=== PATIENT | female | born 1930 | race Caucasian/White ===

== ENCOUNTER 2017-04-17 10:45 | Inpatient (IN) | payer MEDICARE ==
[~2017-04-17] VITALS: Ht 149.9 cm; Wt 57.8 kg
[~2017-04-17 10:45] MED LIST: CYAN10005 PO; NORT10CA PO; NORT50CA PO
[2017-04-17] MEDS ORDERED: IV NORMAL SALINE 500ML BAG 500 ML IV ONE ×2 (11:15→11:30)
[2017-04-17] MEDS ORDERED: fentaNYL PF VIAL 100 MCG/2 ML VIAL IV PRN ×2 (11:15→13:45)
[2017-04-17] MEDS ORDERED: ONDANSETRON PF 4 MG/2 ML VIAL. IV ONE (11:15)
--- NOTE | 2017-04-17 11:24 | RAD ---
EXAM: Chest one view. HISTORY: Shortness of breath. COMPARISON: 07/21/2016. FINDINGS: A frontal view of the chest is obtained. The inspiration is small with left basilar atelectasis/scarring. This is stable to mildly increased. There is a calcified granuloma on the right. There is no pneumothorax or pleural effusion. The heart is not enlarged. There are atherosclerotic calcifications of the aorta. Cholecystectomy clips are noted. IMPRESSION: 1. Small inspiration with left basilar atelectasis or scarring.
[2017-04-17] MEDS ORDERED: CONTRAST GIVEN MC PRN (11:30)
[2017-04-17] MEDS ORDERED: IOHEXOL 300 MG/ML 75 ML VIAL IV ONE (11:30)
--- NOTE | 2017-04-17 12:17 | EKG ---
[facility] [address] [place] [address] Test Date: 2017-04-17 Test Time: 10:50:58 Pat Name: SAIRA FRANCO Department: Room: Gender: F Director Community Organization: : 1930 Requested By: RASHARD RICE Order Number: [id number] Reading MD: Tiago De La Torre Measurements Intervals [place] Rate: 86 P: 72 MA: 168 QRS: -11 QRSD: 80 T: 38 QT: 386 QTc: 465 Interpretive Statements SINUS RHYTHM LEFTWARD AXIS OTHERWISE NORMAL ECG RI6.01 Compared to ECG 07/21/2016 22:42:13 Left-axis deviation now present T-wave abnormality no longer present Electronically Signed On 04-19-2017 10:53:15 CDT by Tiago De La Torre
[2017-04-17 12:28] LABS: BASO % 0 % (0-3); EOS % 0 % (0-3); HEMATOCRIT 38.7 % (36.0-47.0); HEMOGLOBIN 12.3 g/dL (12.0-15.5); LYMPH # 0.4 x10^3/uL (1.0-4.8); LYMPH % 2 % (24-48); MEAN CORPUSCULAR HEMOGLOBIN 30 pg (25-35); MEAN CORPUSCULAR HGB CONC 32 g/dL (31-37); MEAN CORPUSCULAR VOLUME 94 fL (79-100); MONO % 5 % (0-9); NEUT % 92 % (31-73); PLATELET COUNT 185 x10^3/uL (140-400); RED BLOOD COUNT 4.11 x10^6/uL (3.50-5.40); RED CELL DISTRIBUTION WIDTH 15.4 % (11.5-14.5); WHITE BLOOD COUNT 16.4 x10^3/uL (4.0-11.0)
[2017-04-17 12:39] LABS: CALCIUM 7.9 mg/dL (8.5-10.1); GFR 52.8; POTASSIUM 3.7 mmol/L (3.5-5.1)
[2017-04-17 12:45] LABS: ALBUMIN 2.9 g/dL (3.4-5.0); ALBUMIN/GLOBULIN RATIO 0.9 (1.0-1.7); TOTAL BILIRUBIN 0.3 mg/dL (0.2-1.0); TOTAL PROTEIN 6.3 g/dL (6.4-8.2)
[2017-04-17 13:16] LABS: % EOS 1 % (0-5); PLT ESTIMATE ADEQUATE (ADEQUATE)
--- NOTE | 2017-04-17 13:29 | RAD ---
EXAM: CT abdomen/pelvis with contrast. HISTORY: Abdominal pain, nausea, vomiting and diarrhea. TECHNIQUE: Computed tomography of the abdomen and pelvis was performed after the intravenous administration of 75 mL Omnipaque 300. COMPARISON: None. FINDINGS: Lung windows through the visualized portions of the bases reveal moderate basilar atelectasis. Bone windows reveal no suspicious lesions. There is grade 1 anterolisthesis at L3-4 and diffuse moderate to severe lumbar degenerative disc disease. A left hip hemiarthroplasty demonstrates moderate protrusio without a clear pathologic fracture. The gallbladder is surgically absent. The pancreas is atrophic. There is no biliary dilatation. Peripelvic cysts are noted in both kidneys. There is no hydronephrosis. Left renal atrophy is at least mild. The spleen, liver and adrenal glands are unremarkable. There is no obstruction. The rectum is distended with stool to 8-cm. The appendix is not inflamed. There are no pathologically enlarged lymph nodes. IMPRESSION: 1. Correlate for fecal impaction versus constipation. 2. No obstruction or acute intra-abdominal process. 3. 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 Orthopedic follow-up is recommended. *One or more of the following individualized dose reduction techniques were utilized for this examination: 1. Automated exposure control. 2. Adjustment of the mA and/or kV according to patient size. 3. Use of iterative reconstruction technique.
[2017-04-17] MEDS ORDERED: ONDANSETRON PF 4 MG/2 ML VIAL. IV PRN (13:45)
[2017-04-17 13:59] LABS: BILIRUBIN,URINE NEGATIVE (NEG); GLUCOSE,URINE NEGATIVE (NEG); NITRITE,URINE NEGATIVE (NEG); PROTEIN,URINE NEGATIVE (NEG-TRACE); UROBILINOGEN,URINE 0.2 mg/dL (0.2 mg/dL)
[2017-04-17 14:17] LABS: BACTERIA,URINE MODERATE /HPF (0-FEW); RBC,URINE RARE /HPF (0-2); SQUAMOUS EPITHELIAL CELL,UR MANY /LPF
[2017-04-17 14:40] VITALS: BP 115/54
--- NOTE | 2017-04-17 15:21 | PHYS DOC ---
Past Medical History Past Medical History: Dementia, UTI Past Surgical History: Other Additional Past Surgical Histo: UNKNOWN Alcohol Use: None Drug Use: None Adult General Chief Complaint Chief Complaint: NAUSEA/VOMITING/DIARRHA HPI HPI Patient is a 86 year old female who presents with vomiting & abdominal pain. The patient has dementia & gives limited history, therefore history obtained from jail staff. Reportedly she had several episodes of vomiting & complained of abdominal pain. They were concerned that she had brief depressed level of consciousness without syncope or fall. Denies fevers/chills, chest pain, hematemesis, hematochezia/melena, dysuria/hematuria. She has history of frequent UTI. PCP is Dr. Fitch. Review of Systems Review of Systems Constitutional: Denies fever or chills Eyes: Denies change in visual acuity HENT: Denies nasal congestion or sore throat Respiratory: Denies cough or shortness of breath Cardiovascular: Denies chest pain or edema GI: Reports abdominal pain, nausea, vomiting, denies bloody stools or diarrhea : Denies dysuria or hematuria Musculoskeletal: Denies back pain or joint pain Integument: Denies rash or skin lesions Neurologic: Denies headache, focal weakness or sensory changes Current Medications Current Medications Current Medications Medications (Trade) Dose Ordered Sig/Unique Start Time Stop Time Status Last Admin Dose Admin Fentanyl Citrate (Fentanyl 2ml Vial) 50 mcg PRN Q15MIN PRN 04/17/17 11:15 04/18/17 11:14 Info (Do NOT chart on this entry -- for MONITORING) 1 each PRN DAILY PRN 04/17/17 11:30 04/19/17 11:29 Iohexol (Omnipaque 300 Mg/ml) 75 ml 1X ONCE 04/17/17 11:30 04/17/17 11:31 DC 04/17/17 12:59 75 ML Ondansetron HCl (Zofran) 4 mg 1X ONCE 04/17/17 11:15 04/17/17 11:16 DC 04/17/17 11:09 4 MG Sodium Chloride 500 ml @ 1,000 mls/hr 1X ONCE 04/17/17 11:30 04/17/17 11:59 DC 04/17/17 11:30 1,000 MLS/HR Allergies Allergies Allergies Coded Allergies Type Severity Reaction Last Updated Verified melton Allergy Severe Hives 07/22/16 Yes Physical Exam Physical Exam Constitutional: frail, no acute distress, non-toxic appearance. HENT: Normocephalic, atraumatic, bilateral external ears normal, oropharynx moist, nose normal. Eyes: PERRLA, EOMI, conjunctiva normal, no discharge. Neck: supple, no stridor. Cardiovascular: RRR, no murmurs, no edema. Lungs & Thorax: LCTAB, no wheezing, no respiratory distress. Abdomen: normal bowel sounds, soft, moderate diffuse tenderness without rebound/ guarding, no masses or pulsatile masses, nondistended. Skin: Warm, dry, no erythema, no rash. Back: No CVA tenderness. Extremities: No tenderness, no edema. Neurologic: Alert and oriented to person & place, CN2-12 grossly intact, symmetric but globally weak strength & sensation to UE & LE, generally confused with most questions if not yes/no, no focal deficits noted. Psychologic: Affect normal, judgement normal, mood normal. Current Patient Data Vital Signs Vital Signs Date Time Temp Pulse Resp B/P (MAP) Pulse Ox O2 Delivery O2 Flow Rate FiO2 04/17/17 13:00 86 18 118/87 (97) 98 04/17/17 10:45 97.4 Nasal Cannula 2.0 97.4 Lab Values Laboratory Tests Test 04/17/17 12:10 04/17/17 13:00 White Blood Count 16.4 x10^3/uL (4.0-11.0) H Red Blood Count 4.11 x10^6/uL (3.50-5.40) Hemoglobin 12.3 g/dL (12.0-15.5) Hematocrit 38.7 % (36.0-47.0) Mean Corpuscular Volume 94 fL (79-100) Mean Corpuscular Hemoglobin 30 pg (25-35) Mean Corpuscular Hemoglobin Concent 32 g/dL (31-37) Red Cell Distribution Width 15.4 % (11.5-14.5) H Platelet Count 185 x10^3/uL (140-400) Neutrophils (%) (Auto) 92 % (31-73) H Lymphocytes (%) (Auto) 2 % (24-48) L Monocytes (%) (Auto) 5 % (0-9) Eosinophils (%) (Auto) 0 % (0-3) Basophils (%) (Auto) 0 % (0-3) Neutrophils # (Auto) 15.1 x10^3uL (1.8-7.7) H Lymphocytes # (Auto) 0.4 x10^3/uL (1.0-4.8) L Monocytes # (Auto) 0.8 x10^3/uL (0.0-1.1) Eosinophils # (Auto) 0.0 x10^3/uL (0.0-0.7) Basophils # (Auto) 0.0 x10^3/uL (0.0-0.2) Segmented Neutrophils % 82 % (35-66) H Band Neutrophils % 13 % (0-9) H Lymphocytes % 2 % (24-48) L Monocytes % 2 % (0-10) Eosinophils % 1 % (0-5) Platelet Estimate Adequate (ADEQUATE) Sodium Level 143 mmol/L (136-145) Potassium Level 3.7 mmol/L (3.5-5.1) Chloride Level 109 mmol/L (98-107) H Carbon Dioxide Level 25 mmol/L (21-32) Anion Gap 9 (6-14) Blood Urea Nitrogen 33 mg/dL (7-20) H Creatinine 1.0 mg/dL (0.6-1.0) Estimated GFR (Cockcroft-Gault) 52.8 BUN/Creatinine Ratio 33 (6-20) H Glucose Level 115 mg/dL (70-99) H Lactic Acid Level 2.0 mmol/L (0.4-2.0) Calcium Level 7.9 mg/dL (8.5-10.1) L Total Bilirubin 0.3 mg/dL (0.2-1.0) Aspartate Amino Transferase (AST) 16 U/L (15-37) Alanine Aminotransferase (ALT) 17 U/L (14-59) Alkaline Phosphatase 130 U/L (46-116) H Troponin I Quantitative < 0.017 ng/mL (0.000-0.055) Total Protein 6.3 g/dL (6.4-8.2) L Albumin 2.9 g/dL (3.4-5.0) L Albumin/Globulin Ratio 0.9 (1.0-1.7) L Lipase 84 U/L (73-393) Urine Collection Type Unknown Urine Color Yellow Urine Clarity Clear Urine pH 6.0 Urine Specific Chapman >=1.030 Urine Protein Negative mg/dL (NEG-TRACE) Urine Glucose (UA) Negative mg/dL (NEG) Urine Ketones (Stick) Negative mg/dL (NEG) Urine Blood Negative (NEG) Urine Nitrite Negative (NEG) Urine Bilirubin Negative (NEG) Urine Urobilinogen Dipstick 0.2 mg/dL (0.2 mg/dL) Urine Leukocyte Esterase Moderate (NEG) Urine RBC Rare /HPF (0-2) Urine WBC 11-20 /HPF (0-4) Urine Squamous Epithelial Cells Many /LPF Urine Renal Epithelial Cells Occ /LPF Urine Bacteria Moderate /HPF (0-FEW) Urine Mucus Slight /LPF Laboratory Tests 04/17/17 12:10 Laboratory Tests 04/17/17 12:10 EKG EKG Interpreted by me: Normal sinus rhythm rate 86, no acute ST or T wave changes, normal intervals, some artifact [] Radiology/Procedures Radiology/Procedures PROCEDURE: CHEST AP ONLY EXAM: Chest one view. HISTORY: Shortness of breath. COMPARISON: 07/21/2016. FINDINGS: A frontal view of the chest is obtained. The inspiration is small with left basilar atelectasis/scarring. This is stable to mildly increased. There is a calcified granuloma on the right. There is no pneumothorax or pleural effusion. The heart is not enlarged. There are atherosclerotic calcifications of the aorta. Cholecystectomy clips are noted. IMPRESSION: 1. Small inspiration with left basilar atelectasis or scarring. DICTATED and SIGNED BY: YIMI LARA MD DATE: 04/17/17 1121 PROCEDURE: CT ABD PELV W/ IV CONTRST ONLY EXAM: CT abdomen/pelvis with contrast. HISTORY: Abdominal pain, nausea, vomiting and diarrhea. TECHNIQUE: Computed tomography of the abdomen and pelvis was performed after the intravenous administration of 75 mL Omnipaque 300. COMPARISON: None. FINDINGS: Lung windows through the visualized portions of the bases reveal moderate basilar atelectasis. Bone windows reveal no suspicious lesions. There is grade 1 anterolisthesis at L3-4 and diffuse moderate to severe lumbar degenerative disc disease. A left hip hemiarthroplasty demonstrates moderate protrusio without a clear pathologic fracture. The gallbladder is surgically absent. The pancreas is atrophic. There is no biliary dilatation. Peripelvic cysts are noted in both kidneys. There is no hydronephrosis. Left renal atrophy is at least mild. The spleen, liver and adrenal glands are unremarkable. There is no obstruction. The rectum is distended with stool to 8-cm. The appendix is not inflamed. There are no pathologically enlarged lymph nodes. IMPRESSION: 1. Correlate for fecal impaction versus constipation. 2. No obstruction or acute intra-abdominal process. 3. 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 Orthopedic follow-up is recommended. *One or more of the following individualized dose reduction techniques were utilized for this examination: 1. Automated exposure control. 2. Adjustment of the mA and/or kV according to patient size. 3. Use of iterative reconstruction technique. DICTATED and SIGNED BY: YIMI LARA MD DATE: 04/17/17 1311 [] Course & Med Decision Making Course & Med Decision Making Pertinent Labs and Imaging studies reviewed. (See chart for details) The patient presents with vomiting & abdominal pain. Hypotensive upon arrival, improving with IV fluid administration. She had leukocytosis but otherwise no findings for SIRS/sepsis. CT unremarkable for acute abnormality other than constipation/impaction. She had UTI. Urine culture sent, gave rocephin in ED. Recommend admission for ongoing management of blood pressure, she agrees with plan of care. Discussed with Dr. Fitch who agrees to admit to inpatient status. She is being admitted in stable condition. [] Dragon Disclaimer Dragon Disclaimer This electronic medical record was generated, in whole or in part, using a voice recognition dictation system. Departure Departure Impression: Primary Impression: Abdominal pain Additional Impressions: Urinary tract infection Transient hypotension Dehydration Disposition: ADMITTED INPATIENT Admitting Physician: Syed Fitch Condition: STABLE Problem Qualifiers RASHARD RICE MD Apr 17, 2017 15:20
[2017-04-17] MEDS: IV NORMAL SALINE 1000ML BAG 1,000 ML IV SCH ×2 (15:37→23:50)
[2017-04-17 19:00] VITALS: BP 112/72
--- NOTE | 2017-04-17 21:28 | ACF ---
Admission Forms Criteria ABDOMINAL PAIN Clinical Indications for Admission to Inpatient Care (Place 'X' for any and all applicable criteria): Admission is indicated for ANY ONE of the following(1)(2)(3)(4)(5): [X]I. Inpatient admission required rather than observation care (Also use Abdominal Pain: Observation Care, as appropriate) because of ANY ONE of the following: [X]a) Severe pain requiring acute inpatient management [ ]b) Identification of etiology/finding that requires inpatient care (eg, aortic dissection, free air) [ ]c) Absent bowel sounds with complete ileus(6) [ ]d) Suspected toxic megacolon [ ]e) Severe electrolyte abnormalities requiring inpatient care [ ]f) High fever or infection requiring inpatient admission as indicated by ANY ONE of following(7)(8): [ ] i) Appropriate outpatient or observational care antimicrobial treatment unavailable, not effective, or not feasible [ ] ii) Documented bacteremia [ ] iii) Temperature > 104.9 degrees F (oral) [ ] iv) T >103.1 F (oral) or < 96.8 F(rectal) that does not respond to all emergency treatment measures [ ]g) Signs of intestinal obstruction [B] [ ]h) Hemodynamic instability [ ]i) IV fluid to replace significant ongoing losses (greater than 3 L/m2 per day) (12)(13) [ ]j) Percutaneous or open drainage (eg, abscess, biliary tract ) procedures [ ]k) Parenteral nutrition regimen that must be implemented on inpatient basis [ ]l) Other condition,treatment or monitoring requiring inpatient admission. [ ]II. Peritoneal signs present [ ]III. Surgery needed that cannot be performed on an ambulatory basis. [ ]IV. Evaluation requires patient to not eat or drink for extended period ( eg, more than 24 hours). [ ]V. Contraindications and/or Inappropriate clinical situations for Observational Care in patients with abdominal pain, when ANY ONE of the following is required: [ ]a) Thorough evaluation is required to prevent catastrophic events due to delays in diagnosing (e.g.Mesenteric ischemia) 1,3 [ ]b) Patient with severe pathology or with chronic symptoms unlikely to improve in the ED stay (3) [ ]. General contraindications and/or Inappropriate clinical situations for Observational Care in patients with abdominal pain, when ANY ONE of the following is required: [ ]a) Prediction of prolongation of LOS based on ANY ONE of the following may be considered as a contraindication for observational care 2, 3, 4, 5, 6, 7, 8, 9, 10, 11 [ ]i) Age > 65 yrs. [ ]ii) Patient arriving by ambulance [ ]iii) Patient with high acuity [ ]iv) Patient requiring vital sign monitoring [ ]v) Patient on IV medication [ ]b) Systolic blood pressures 180mmHg 3,12 [ ]c) Patient with altered mental status including delirium and other alteration of consciousness, (3) [ ]d) Patient whose discharge disposition will be to a snf home or rehabilitation home should not be managed in Emergency Department Observation Unit. CMS rule requires 3 days hospital stay before such placement.3,13 [ ]e) Patient with failure to thrive due to broad array of etiologies 3,16,17 [ ]f) Inability to ambulate 3,14 Extended stay beyond goal length of stay may be needed for(2)(3): [ ]a) Persistent abdominal pain with suspected intra-abdominal process [ ]b) Diagnosed condition requiring continued stay (e.g., pancreatitis, complicated diverticulitis) [ ]c) Surgery (e.g., colectomy) The original [email or web address] content created by [employer] has been revised. The portions of the content which have been revised are identified through the use of italic text or in bold, and [email or web address] has neither reviewed nor approved the modified material.All other unmodified content is copyright [employer]. Please see references footnoted in the original [email or web address] edition 2016 Admission Criteria Met?: Yes ADRI DOMINIQUE Apr 17, 2017 21:27
[2017-04-17 23:00] VITALS: BP 138/66
[2017-04-18 03:00] VITALS: BP 117/78
[2017-04-18 05:14] LABS: BASO % 0 % (0-3); EOS % 1 % (0-3); HEMATOCRIT 30.1 % (36.0-47.0); HEMOGLOBIN 10.1 g/dL (12.0-15.5); LYMPH # 0.7 x10^3/uL (1.0-4.8); LYMPH % 11 % (24-48); MEAN CORPUSCULAR HEMOGLOBIN 30 pg (25-35); MEAN CORPUSCULAR HGB CONC 34 g/dL (31-37); MEAN CORPUSCULAR VOLUME 91 fL (79-100); MONO % 6 % (0-9); NEUT % 82 % (31-73); PLATELET COUNT 157 x10^3/uL (140-400); RED BLOOD COUNT 3.33 x10^6/uL (3.50-5.40); RED CELL DISTRIBUTION WIDTH 14.9 % (11.5-14.5); WHITE BLOOD COUNT 6.5 x10^3/uL (4.0-11.0)
[2017-04-18 05:30] LABS: CALCIUM 6.8 mg/dL (8.5-10.1); CREATININE 0.9 mg/dL (0.6-1.0); GFR 59.7; POTASSIUM 3.7 mmol/L (3.5-5.1)
[2017-04-18 07:00] VITALS: BP 123/59
[2017-04-18] MEDS: IV NORMAL SALINE 1000ML BAG 1,000 ML IV SCH (10:12)
[2017-04-18 11:00] VITALS: BP 122/73
--- NOTE | 2017-04-18 11:19 | PDOC ---
Provider Note Provider Note Pt seen.H&P dictated. #[id number] LUIS LIVINGSTON MD Apr 18, 2017 11:19
--- NOTE | 2017-04-18 12:08 | HP ---
ADMIT DATE: PATIENT'S LOCATION: 408. REASON FOR ADMISSION TO THE HOSPITAL: Nausea, vomiting, diarrhea, abdominal pain, dehydration and elevated WBC. HISTORY OF PRESENT ILLNESS: The patient is an 86-year-old female patient from senior living. She has a history of dementia. She was having vomiting, abdominal pain and a brief episode of consciousness with near syncopal episode and the patient was admitted to the hospital. Urine shows UTI. CT of the abdomen shows some stool in the colon. White count elevated to 16,000. PAST MEDICAL HISTORY: History of dementia and recurrent UTIs. PAST SURGICAL HISTORY: Hip surgery. ALLERGIES: TO GOMEZ. MEDICATIONS AT HOME: Elavil 25 mg daily and B complex daily. PERSONAL HISTORY: No history of smoking, alcohol or drug abuse. SOCIAL HISTORY: Lives in senior living for 2-3 years. REVIEW OF SYSTEMS: The patient says she is feeling better, no nausea or vomiting today. No chest pain, no shortness of breath, no abdominal pain. PHYSICAL EXAMINATION: GENERAL: The patient is pleasant, not in any distress. VITAL SIGNS: Temperature 100.8, pulse 90, respirations 18, blood pressure was low at admission 69/44. HEENT: Head is atraumatic. Pupils equal. Oral cavity, no teeth. NECK: Supple. Thyroid not enlarged. JVD not elevated. CHEST: Symmetrical. CARDIOVASCULAR: S1, S2. LUNGS: Clear. ABDOMEN: Soft. No mass palpable. EXTERNAL GENITALIA: No Pleitez. RECTAL: Deferred. EXTREMITIES: No calf tenderness. Pulses 1+. NEUROLOGIC: The patient is moving all extremities. No focal deficits noted. LABORATORY DATA: Shows a white count of 16, came down to 6.5, hemoglobin 12, platelets 185. Electrolytes show sodium 143, potassium 3.7, chloride 109, bicarbonate 25, BUN 33, cr 1.2. Lactic acid was 2. LFTs were normal. Urine shows moderate leukocyte esterase, 11-20 wbc. She had an abdomen and pelvis CT scan shows some stool in the distal colon. No obstruction. Left hip hemiarthroplasty on the CT scan. FINAL IMPRESSION: 1. Hypotension. 2. Possible urinary tract infection. 3. Dementia. 4. History of gallbladder as well as left hip surgery. PLAN: At this time, admit to hospital, hydrate with IV fluids. Blood pressure improved. Urine cultures, blood cultures. Started on IV Rocephin and see how the patient's condition improves. LUIS LIVINGSTON MD DR: SYED/daxa JOB#: [id number] / [id number] [place]
[2017-04-18] MEDS: CYANOCOBALAMIN (VITAMIN B-12) 1,000 MCG TABLET. PO SCH (12:30)
[2017-04-18] MEDS: ENOXAPARIN 40 MG/0.4 ML SYRINGE. SQ SCH (12:31)
[2017-04-18 15:00] VITALS: BP 157/82
[2017-04-18 19:00] VITALS: BP 128/76
[2017-04-18] MEDS: NORTRIPTYLINE 25 MG CAPSULE PO SCH ×2 (20:54→21:00)
[2017-04-18 23:00] VITALS: BP 149/80
[2017-04-19 04:38] LABS: BASO % 0 % (0-3); EOS % 3 % (0-3); HEMATOCRIT 32.2 % (36.0-47.0); HEMOGLOBIN 10.6 g/dL (12.0-15.5); LYMPH # 0.9 x10^3/uL (1.0-4.8); LYMPH % 16 % (24-48); MEAN CORPUSCULAR HEMOGLOBIN 30 pg (25-35); MEAN CORPUSCULAR HGB CONC 33 g/dL (31-37); MEAN CORPUSCULAR VOLUME 92 fL (79-100); MONO % 9 % (0-9); NEUT % 73 % (31-73); PLATELET COUNT 151 x10^3/uL (140-400); RED BLOOD COUNT 3.51 x10^6/uL (3.50-5.40); RED CELL DISTRIBUTION WIDTH 14.7 % (11.5-14.5); WHITE BLOOD COUNT 5.7 x10^3/uL (4.0-11.0)
[2017-04-19 07:00] VITALS: BP 135/50
[2017-04-19] MEDS: CYANOCOBALAMIN (VITAMIN B-12) 1,000 MCG TABLET. PO SCH (08:42)
--- NOTE | 2017-04-19 09:47 | PDOC ---
PROGRESS NOTES Subjective Subjective feeling good ,back to base line Objective Objective Vital Signs Date Time Temp Pulse Resp B/P (MAP) Pulse Ox O2 Delivery O2 Flow Rate FiO2 04/19/17 07:00 98.1 81 20 135/50 (78) 99 Room Air 98.1 04/18/17 20:00 3.0 Intake and Output 04/19/17 07:00 Intake Total 115 ml Balance 115 ml Intake Oral 65 ml IV Total 50 ml # Voids 5 Physical Exam Abdomen: Normal bowel sounds, Soft Heart: Regular rate, Normal S1 Extremities: No clubbing General: Alert HEENT: Atraumatic Lungs: Clear to auscultation MUSCULOSKELETAL: No deformity Neck: Supple Neuro: Normal speech Psych/Mental Status: Mental status NL Skin: No breakdown Diagnosis Problem List Problems Medical Problems: (1) Abdominal pain Status: Acute (2) Dehydration Status: Acute (3) Transient hypotension Status: Acute (4) Urinary tract infection Status: Acute Assessment Assessment Problems Medical Problems: (1) Abdominal pain Status: Acute (2) Dehydration Status: Acute (3) Transient hypotension Status: Acute (4) Urinary tract infection Status: Acute FINAL IMPRESSION: 1. Hypotension. 2. Possible urinary tract infection. 3. Dementia. 4. History of gallbladder as well as left hip surgery. PLAN: hypotension corrected. urine 50,000 gram neg. wbc normal , d/c back to NH on oral keflex for 5 days. h/o recurrent uti.will treat as one spoke with daughter. At this time, admit to hospital, hydrate with IV fluids. Blood pressure improved. Urine cultures, blood cultures. Started on IV Rocephin and see how the patient's condition improves. Problems: Plan Plan of Care Problems Medical Problems: (1) Abdominal pain Status: Acute (2) Dehydration Status: Acute (3) Transient hypotension Status: Acute (4) Urinary tract infection Status: Acute Comment Review of Relevant I have reviewed the following items leticia (where applicable) has been applied. Labs Laboratory Tests Test 04/18/17 16:00 04/19/17 03:30 Lactic Acid Level 0.8 mmol/L (0.4-2.0) White Blood Count 5.7 x10^3/uL (4.0-11.0) Red Blood Count 3.51 x10^6/uL (3.50-5.40) Hemoglobin 10.6 g/dL (12.0-15.5) Hematocrit 32.2 % (36.0-47.0) Mean Corpuscular Volume 92 fL (79-100) Mean Corpuscular Hemoglobin 30 pg (25-35) Mean Corpuscular Hemoglobin Concent 33 g/dL (31-37) Red Cell Distribution Width 14.7 % (11.5-14.5) Platelet Count 151 x10^3/uL (140-400) Neutrophils (%) (Auto) 73 % (31-73) Lymphocytes (%) (Auto) 16 % (24-48) Monocytes (%) (Auto) 9 % (0-9) Eosinophils (%) (Auto) 3 % (0-3) Basophils (%) (Auto) 0 % (0-3) Neutrophils # (Auto) 4.1 x10^3uL (1.8-7.7) Lymphocytes # (Auto) 0.9 x10^3/uL (1.0-4.8) Monocytes # (Auto) 0.5 x10^3/uL (0.0-1.1) Eosinophils # (Auto) 0.2 x10^3/uL (0.0-0.7) Basophils # (Auto) 0.0 x10^3/uL (0.0-0.2) Microbiology 04/17/17 Urine Culture - Preliminary, Resulted 04/17/17 Urine Culture Result 1 (TJ) - Preliminary, Resulted Medications Current Medications Ceftriaxone Sodium 1 gm/ Sodium Chloride 50 ml @ 100 mls/hr Q24H IV Last administered on 04/18/17 12:31; Start 04/18/17 at 12:00 Cyanocobalamin (Vitamin B-12) 1,000 mcg DAILY PO Last administered on 08:42; Start 04/18/17 at 12:00 Enoxaparin Sodium (Lovenox 40mg Syringe) 40 mg Q24H SQ Last administered on 12:31; Start 04/18/17 at 12:00 Nortriptyline HCl (Pamelor) 50 mg QHS PO ; Start 04/18/17 at 21:00 Vitals/I & O Vital Sign - Last 24 Hours 04/18/17 04/18/17 04/18/17 04/18/17 11:00 15:00 19:00 20:00 Temp 98.9 98.1 98.3 98.9 98.1 98.3 Pulse 70 79 76 Resp 20 20 18 B/P (MAP) 122/73 (89) 157/82 (107) 128/76 (93) Pulse Ox 99 99 93 O2 Delivery Room Air Nasal Cannula Room Air Nasal Cannula O2 Flow Rate 3.0 3.0 04/18/17 04/19/17 23:00 07:00 Temp 98.1 98.1 98.1 98.1 Pulse 82 81 Resp 18 20 B/P (MAP) 149/80 (103) 135/50 (78) Pulse Ox 96 99 O2 Delivery Room Air Room Air Intake and Output 04/18/17 04/18/17 04/19/17 15:00 23:00 07:00 Intake Total 50 ml 65 ml Balance 50 ml 65 ml LUIS LIVINGSTON MD Apr 19, 2017 09:47
--- NOTE | 2017-04-19 09:51 | PDOC ---
Provider Note Provider Note Discharge summary Dictated. #[id number] LUIS LIVINGSTON MD Apr 19, 2017 09:51
[2017-04-19 11:00] VITALS: BP 150/92
[2017-04-19] MEDS: ENOXAPARIN 40 MG/0.4 ML SYRINGE. SQ SCH (12:00)
--- NOTE | 2017-04-19 21:27 | DS ---
DATE OF DISCHARGE: 04/19/2017 PATIENT LOCATION: [facility] REASON FOR ADMISSION TO THE HOSPITAL: Hypertension, nausea, vomiting, and UTI. CONSULTATIONS: None. PROCEDURES DONE: CT of abdomen and pelvis. COMPLICATIONS NOTED: None. HOSPITAL COURSE: The patient is an 86-year-old female with history of dementia at snf. The patient had an episode of confusion also hypertension and near syncopal episode, was brought to the hospital, white count elevated to 16,000. Urine shows nitrites positive. Urine culture shows 50,000 gram-negative. Repeat white count in the next day came back normal at 6.5 and other electrolytes were unremarkable and the patient was on clear liquid, advanced as tolerated, was given IV Rocephin, condition improved. Her baseline is back to her normal and the hypertension was corrected and she was discharged. The patient has a history of recurrent UTIs, given 50,000 gram-negative, we decided to treat for 7 days with Keflex total of 7 days of antibiotics, 5 more days with Keflex. FINAL DIAGNOSES: 1. Acute UTI. 2. Recurrent UTI. 3. Hypotension, probably related to UTI. 4. Stool in the distal colon and recommend stool softeners. 5. Dementia. 6. History of previous prosthesis in the left hip. DISPOSITION: Back to the snf, see discharge medications. The patient is a DNR, spoke with family. LUIS LIVINGSTON MD DR: SYED/daxa JOB#: [id number] / [id number] [facility]
== END 2017-04-19 14:45 | disposition home or self-care (01) | DRG 690 ==
LOC: ER 10:45 → 5 SOUTH 13:24 → 4 NORTH 14:23
PROVIDERS: ADMIT Internal Medicine; ATTEND Internal Medicine
DX: N39.0 Urinary tract infection, site not specified (principal); E44.1 Mild protein-calorie malnutrition; I10 Essential (primary) hypertension; F03.90 Unspecified dementia, unspecified severity, without behavioral disturbance, psychotic disturbance, mood disturbance, and anxiety; I95.9 Hypotension, unspecified; Z66 Do not resuscitate; Z96.642 Presence of left artificial hip joint; R55 Syncope and collapse; E86.0 Dehydration; Z87.440 Personal history of urinary (tract) infections; Z91.09 Other allergy status, other than to drugs and biological substances
CPT/HCPCS: 36415; 71010; 74177; 80048; 80053; 81001; 83605; 83690; 84484; 85007; 85027; 87040; 87086; 87186; 87641; 93005; 96361; 96374; J0696; J1650; J2405; J7030; J7040; Q9967; 99285-25

== ENCOUNTER 2022-02-06 10:16 | Inpatient (IN) | payer MEDICARE ==
[~2022-02-06] VITALS: Ht 152.4 cm; Wt 38.2 kg
[~2022-02-06 10:16] MED LIST changes: +CYAN-25 PO; -CYAN10005 PO
[2022-02-06] MEDS ORDERED: IV NORMAL SALINE 1000ML BAG 1,000 ML IV ONE (10:30)
[2022-02-06 10:34] LABS: BASE EXCESS ABG -2 mmol/L (-3-3); HCO3 ABG 17 mmol/L (21-28); PO2 ABG 199 mmHg (65-108); SAT O2 ABG 99 % (92-99)
[2022-02-06 10:36] LABS: FIO2 ABG 100% 15LNRB; PCO2 ABG 18 mmHg (35-46)
--- NOTE | 2022-02-06 10:44 | PHYS DOC ---
Past Medical History Past Medical History: Dementia, UTI Past Surgical History: Other Additional Past Surgical Histo: UNKNOWN Smoking Status: Never Smoker Alcohol Use: None Drug Use: None Adult General Chief Complaint Chief Complaint: HYPOTENSION HPI HPI Patient is a 89 year old female presenting to the emergency department for evaluation of altered mental status hypotension tachycardia and hypoxia. Report from intermediate is that she was at her baseline all night and then woke up like this. Patient appears to only be on 1 medication which is nortriptyline. She appears to be very ill as she is tachypneic tachycardic and hypoxic at room air but with her nonrebreather on her oxygen saturation is at 100%. She does not have a measurable blood pressure either and she has weak central pulses and nonpalpable peripheral pulses. Patient had a fever per EMS but here she is afebrile. On her intermediate paperwork and states that she is a DNR. I called the daughter, Claire who is her DURABLE POWER OF FOLLOW UP SPECIALIST and let her know that the patient is extremely ill and appears to be dying. Daughter did not seem to be surprised that she has been in very poor health for the past 7 years and she confirmed that the patient would not want to be on life support be unabated be on pressors or have aggressive life-sustaining measures. She did consent to fluids and antibiotics if necessary. Daughter says she has not seen the patient in 2 years due to Covid restrictions but before that she would converse but was quite confused. Patient is unresponsive and has a GCS of 3 on arrival. Review of Systems Review of Systems Unable to obtain due to mental status Current Medications Current Medications Current Medications Medications (Trade) Dose Ordered Sig/[facility] Start Time Stop Time Status Last Admin Dose Admin Aspirin (Aspirin Rectal Supp) 300 mg 1X ONCE 02/06/22 11:45 02/06/22 11:46 Magnesium Sulfate 50 ml @ 25 mls/hr 1X ONCE 02/06/22 12:00 02/06/22 13:59 Piperacillin Sod/ Tazobactam Sod 3.375 gm/Sodium Chloride 50 ml @ 100 mls/hr 1X ONCE 02/06/22 11:00 02/06/22 11:29 DC 02/06/22 10:53 100 MLS/HR Potassium Chloride/Sodium Chloride 1,000 ml @ 250 mls/hr Q4H ONCE 02/06/22 11:30 02/06/22 15:29 Sodium Chloride 1,000 ml @ 1,000 mls/hr 1X ONCE 02/06/22 10:30 02/06/22 11:29 DC 02/06/22 10:48 1,000 MLS/HR Allergies Allergies Allergies Coded Allergies Type Severity Reaction Last Updated Verified melton Allergy Severe Hives 02/06/22 Yes Physical Exam Physical Exam Constitutional: Ill-appearing female with tachypnea HENT: Normocephalic, Eyes: Pupils 4 mm and minimally reactive to light. Horizontal nystagmus spontaneously [id number] with both eyes. Neck: Normal range of motion, no tenderness, supple, no stridor. [] Cardiovascular:Heart rate tachycardic with regular rhythm, no murmur [] Lungs & Thorax: Bilateral breath sounds diminished but no abnormal breath sounds auscultated Abdomen: Bowel sounds normal, soft Skin: Cool and pale Back: Nontraumatic Extremities: Cool and pale Neurologic: Alert and oriented X 0, not moving spontaneously Current Patient Data Vital Signs Vital Signs Date Time Temp Pulse Resp B/P (MAP) Pulse Ox O2 Delivery O2 Flow Rate FiO2 02/06/22 11:01 110 48 61/53 (56) 99 NonRebreather Mask 15.0 02/06/22 10:20 98.5 98.5 Lab Values Laboratory Tests Test 02/06/22 10:30 02/06/22 10:33 White Blood Count 16.0 x10^3/uL (4.0-11.0) H Red Blood Count 4.05 x10^6/uL (3.50-5.40) Hemoglobin 12.7 g/dL (12.0-15.5) Hematocrit 38.6 % (36.0-47.0) Mean Corpuscular Volume 95 fL (79-100) Mean Corpuscular Hemoglobin 31 pg (25-35) Mean Corpuscular Hemoglobin Concent 33 g/dL (31-37) Red Cell Distribution Width 13.9 % (11.5-14.5) Platelet Count 184 x10^3/uL (140-400) Neutrophils (%) (Auto) 97 % (31-73) H Lymphocytes (%) (Auto) 2 % (24-48) L Monocytes (%) (Auto) 1 % (0-9) Eosinophils (%) (Auto) 0 % (0-3) Basophils (%) (Auto) 0 % (0-3) Neutrophils # (Auto) 15.5 x10^3/uL (1.8-7.7) H Lymphocytes # (Auto) 0.3 x10^3/uL (1.0-4.8) L Monocytes # (Auto) 0.2 x10^3/uL (0.0-1.1) Eosinophils # (Auto) 0.0 x10^3/uL (0.0-0.7) Basophils # (Auto) 0.0 x10^3/uL (0.0-0.2) Platelet Estimate Pending Sodium Level 151 mmol/L (136-145) H Potassium Level 3.0 mmol/L (3.5-5.1) L Chloride Level 109 mmol/L (98-107) H Carbon Dioxide Level 18 mmol/L (21-32) L Anion Gap 24 (6-14) H Blood Urea Nitrogen 60 mg/dL (7-20) H Creatinine 2.2 mg/dL (0.6-1.0) H Estimated GFR (Cockcroft-Gault) 21.0 BUN/Creatinine Ratio 27 (6-20) H Glucose Level 116 mg/dL (70-99) H Lactic Acid Level 8.8 mmol/L (0.4-2.0) *H Calcium Level 9.6 mg/dL (8.5-10.1) Total Bilirubin 1.7 mg/dL (0.2-1.0) H Aspartate Amino Transferase (AST) 26 U/L (15-37) Alanine Aminotransferase (ALT) 15 U/L (14-59) Alkaline Phosphatase 153 U/L (46-116) H Troponin I High Sensitivity 2446 ng/L (4-50) H DS-Exa-J-Type Natriuretic Peptide 4181 pg/mL (0-449) H Total Protein 6.2 g/dL (6.4-8.2) L Albumin 2.9 g/dL (3.4-5.0) L Albumin/Globulin Ratio 0.9 (1.0-1.7) L Lipase 44 U/L (73-393) L Thyroid Stimulating Hormone (TSH) 1.585 uIU/mL (0.358-3.74) O2 Saturation 99 % (92-99) Arterial Blood pH 7.60 (7.35-7.45) *H Arterial Blood pCO2 at Patient Temp 18 mmHg (35-46) *L Arterial Blood pO2 at Patient Temp 199 mmHg (65-108) H Arterial Blood HCO3 17 mmol/L (21-28) L Arterial Blood Base Excess -2 mmol/L (-3-3) FiO2 100% 15lnrb Laboratory Tests 02/06/22 10:30 Laboratory Tests 02/06/22 10:30 EKG EKG Sinus tachycardia at 134 bpm with normal axis no ST elevation or depression normal T waves and normal intervals. Radiology/Procedures Radiology/Procedures [] Course & Med Decision Making Course & Med Decision Making Patient will be treated supportively with IV fluids and antibiotics at this time. I will check labs and imaging and assess plan further. Certainly patient could be having a seizure. Patient has very abnormal work-up with signs of metabolic encephalopathy including increase in creatinine and BUN, hypernatremia and hypokalemia. She has had a very elevated troponin but no criteria to activate Gas Plant Specialist. She was given a rectal aspirin but will defer further anticoagulation at this time. Patient does appear to be improving somewhat as her heart rate came down to 110 from 140 and she actually woke up and said a few words. I spoke to Dr. Desmond Garcia and he agreed to accept patient for admission. Patient will be admitted to the telemetry floor given she is a DNR. Cardiology neurology and infectious disease consults are all pending. Patient admitted in critical condition. Critical care time of 40 minutes. Dragon Disclaimer Dragon Disclaimer This electronic medical record was generated, in whole or in part, using a voice recognition dictation system. Departure Departure Impression: Primary Impression: Acute encephalopathy Additional Impressions: Renal insufficiency Hypokalemia Hypernatremia Elevated troponin Leukocytosis Lactic acidosis Disposition: ADMITTED INPATIENT Admitting Physician: Desmond Garcia Condition: CRITICAL Referrals: LUIS LIVINGSTON MD (PCP) Problem Qualifiers DREA TRAVIS DO Feb 06, 2022 10:44
[2022-02-06 10:48] LABS: BASO % 0 % (0-3); EOS % 0 % (0-3); HEMATOCRIT 38.6 % (36.0-47.0); HEMOGLOBIN 12.7 g/dL (12.0-15.5); LYMPH # 0.3 x10^3/uL (1.0-4.8); LYMPH % 2 % (24-48); MEAN CORPUSCULAR HEMOGLOBIN 31 pg (25-35); MEAN CORPUSCULAR HGB CONC 33 g/dL (31-37); MEAN CORPUSCULAR VOLUME 95 fL (79-100); MONO # 0.2 x10^3/uL (0.0-1.1); MONO % 1 % (0-9); NEUT # 15.5 x10^3/uL (1.8-7.7); NEUT % 97 % (31-73); PLATELET COUNT 184 x10^3/uL (140-400); RED BLOOD COUNT 4.05 x10^6/uL (3.50-5.40); RED CELL DISTRIBUTION WIDTH 13.9 % (11.5-14.5)
--- NOTE | 2022-02-06 10:59 | RAD ---
PQRS Compliance Statement: One or more of the following individualized dose reduction techniques were utilized for this examinat ion: 1. Automated exposure control 2. Adjustment of the mA and/or kV according to patient size 3. Use of iterative reconstruction technique CT head without contrast 02/06/2022 10:31 AM INDICATION: Altered mental status COMPARISON: MRI brain 07/22/2016 TECHNIQUE: Multiple axial CT images of the head were obtained from skull base through the vertex with out intravenous contrast. FINDINGS: Head: Ventricles, sulci and basal cisterns are prominent compatible with mild general cerebral volume loss. Low-attenuation in the periventricular white matter is suggestive of chronic small vessel ischemic c hanges. There is no hydrocephalus. Rider-white matter differentiation is normal. There is no acute int racranial hemorrhage. There is no mass, mass effect or midline shift. Mild cerebellar atrophy. Athero sclerotic calcifications of the posterior and anterior circulation. Visualized portions of the orbits are normal. There is opacification of posterior left ethmoid air ce ll. Mastoid air cells are well aerated. Scalp and calvaria are normal. IMPRESSION: No acute intracranial hemorrhage. Mild cerebellar and generalized cerebral volume loss. Low-attenuation in the periventricular white ma tter is suggestive of chronic small vessel ischemic changes. Electronically signed by: Karla Brantlye MD (02/06/2022 10:56 AM) [id number]
[2022-02-06] MEDS ORDERED: PIPERACILLIN/TAZOBACTAM 3.375 GM in IV NORMAL SALINE 50ML 50 ML IV ONE (11:00)
[2022-02-06 11:05] LABS: ALBUMIN 2.9 g/dL (3.4-5.0); ALBUMIN/GLOBULIN RATIO 0.9 (1.0-1.7); CALCIUM 9.6 mg/dL (8.5-10.1); TOTAL BILIRUBIN 1.7 mg/dL (0.2-1.0); TOTAL PROTEIN 6.2 g/dL (6.4-8.2)
[2022-02-06 11:08] LABS: CREATININE 2.2 mg/dL (0.6-1.0)
--- NOTE | 2022-02-06 11:18 | RAD ---
AP chest. HISTORY: Altered mental status AP view was taken of the chest. There is arthritis in both shoulders. Heart is normal in size. The ao rta is mildly enlarged and tortuous without change from an old study. Patient's taken a poor inspirat ion. There is mild right lung base linear scarring or atelectasis similar to the old study. There are no acute infiltrates. There is a granuloma on the right. There is moderate stool in the colon. IMPRESSION: 1. Poor inspiration. 2. Linear scarring or atelectasis without other infiltrates. Electronically signed by: Miguel Rueda MD (02/06/2022 11:15 AM) [id number]
[2022-02-06] MEDS ORDERED: POTASSIUM CL 40MEQ IN 0.9%NACL 1,000 ML IV ONE (11:30)
[2022-02-06 11:40] LABS: PARTIAL THROMBOPLASTIN TIME 29 SEC (24-38); PROTHROMBIN TIME PATIENT 16.2 SEC (11.7-14.0)
[2022-02-06] MEDS ORDERED: ONDANSETRON PF 4 MG/2 ML VIAL. IVP PRN (11:45)
[2022-02-06] MEDS ORDERED: ASPIRIN RECTAL 300 MG SUPP. PR ONE (11:45)
[2022-02-06 11:46] LABS: BACTERIA,URINE MODERATE /HPF (0-FEW)
[2022-02-06 11:47] LABS: AMORPHOUS SEDIMENT,UR PRESENT /HPF
[2022-02-06] MEDS ORDERED: MAGNESIUM SULFATE 2GM 50 ML IV ONE (12:00)
[2022-02-06 12:08] LABS: D-DIMER > 20.00 ug/mlFEU (0.00-0.50)
[2022-02-06 12:23] LABS: INFLUENZA A PATIENT NEGATIVE (NEGATIVE); INFLUENZA B PATIENT NEGATIVE (NEGATIVE)
--- NOTE | 2022-02-06 12:27 | PDOC2 ---
NEUROLOGY CONSULT Date of Service DOS: DATE: 02/06/22 TIME: 12:15 Reason for Consult Reason for Consult: Possible seizures Referring Physician Referring Physician: Dr. Garcia Source Source: Caregiver (daughter), Chart review History of Present Illness History of Present Illness The patient is an 89-year-old right-handed female who comes in from the long term with hypotension, tachycardia, and hypoxia. 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 Patient has been in this long term for 7 years. Patient has been made DO NOT RESUSCITATE. [facility] Past Medical History CENTRAL NERVOUS SYSTEM: Dementia Renal/: UTI Past Surgical History Past Surgical History: Total hip replacement Family History Family History: No pertinent hx Social History Social History , long term resident, no alcohol or tobacco Current Medications Current Medications Current Medications Sodium Chloride 1,000 ml @ 1,000 mls/hr 1X ONCE IV Last administered on 02/06/22at 10:48; Start 02/06/22 at 10:30; Stop 02/06/22 at 11:29; Status DC Piperacillin Sod/ Tazobactam Sod 3.375 gm/Sodium Chloride 50 ml @ 100 mls/hr 1X ONCE IV Last administered on 02/06/22at 10:53; Start 02/06/22 at 11:00; Stop 02/06/22 at 11:29; Status DC Aspirin (Aspirin Rectal Supp) 300 mg 1X ONCE [place] Last administered on 02/06/22at 11:51; Start 02/06/22 at 11:45; Stop 02/06/22 at 11:46; Status DC Potassium Chloride/Sodium Chloride 1,000 ml @ 250 mls/hr Q4H ONCE IV Last administered on 02/06/22at 11:48; Start 02/06/22 at 11:30; Stop 02/06/22 at 15:29 Magnesium Sulfate 50 ml @ 25 mls/hr 1X ONCE IV Last administered on 02/06/22at 11:49; Start 02/06/22 at 12:00; Stop 02/06/22 at 13:59 Ondansetron HCl (Zofran) 4 mg PRN Q8HRS PRN IVP NAUSEA/VOMITING; Start 02/06/22 at 11:45; Stop 02/07/22 at 11:44 Active Scripts Active Reported Nortriptyline Hcl 50 Mg Capsule 50 Mg PO DAILY Vitamin B-12 (Cyanocobalamin (Vitamin B-12)) 1,000 Mcg Tablet 1 Tab PO DAILY Allergies Allergies: Coded Allergies: melton (Verified Allergy, Severe, Hives, 02/06/22) ROS Review of System Negative for fever, chills, weight loss, shortness of breath, chest pain, indigestion, hematochezia, melena, and dysuria. Full 14-point review of systems is negative. Physical Exam Physical Examination General: Well-developed, well-nourished white female in some distress HEENT: Normocephalic andatraumatic. Temporal arteriespulsatile. Neck: Supple without bruit, no meningismus Musculoskeletal: Stability:see neurologic. Gait exam:see neurologic. Tone:see neurologic.Strength:see neurologic. Neurological: Mental Status:orientation, memory, attention span/concentration, language, fund of knowledge: She is in a nonrebreather mask, no response to voice or pain. Cranial Nerves:Pupils equal and reactive to light, extraocular movements areintact. `Somewhat nystagmoid eye movements noted. There is no facial asymmetry. All other cranial related problems are negative except as mentioned before.Reflexes:2+ and symmetric with flexor plantar responses. Motor:No response to pain. Coordination ang gait:not cooperative. Sensory:not cooperative. Vitals VITALS Vital Signs Date Time Temp Pulse Resp B/P (MAP) Pulse Ox O2 Delivery O2 Flow Rate FiO2 02/06/22 11:01 110 48 61/53 (56) 99 NonRebreather Mask 15.0 02/06/22 10:20 98.5 98.5 Labs Labs Laboratory Tests Test 02/06/22 10:30 02/06/22 10:33 02/06/22 11:05 White Blood Count 16.0 x10^3/uL (4.0-11.0) Red Blood Count 4.05 x10^6/uL (3.50-5.40) Hemoglobin 12.7 g/dL (12.0-15.5) Hematocrit 38.6 % (36.0-47.0) Mean Corpuscular Volume 95 fL (79-100) Mean Corpuscular Hemoglobin 31 pg (25-35) Mean Corpuscular Hemoglobin Concent 33 g/dL (31-37) Red Cell Distribution Width 13.9 % (11.5-14.5) Platelet Count 184 x10^3/uL (140-400) Neutrophils (%) (Auto) 97 % (31-73) Lymphocytes (%) (Auto) 2 % (24-48) Monocytes (%) (Auto) 1 % (0-9) Eosinophils (%) (Auto) 0 % (0-3) Basophils (%) (Auto) 0 % (0-3) Neutrophils # (Auto) 15.5 x10^3/uL (1.8-7.7) Lymphocytes # (Auto) 0.3 x10^3/uL (1.0-4.8) Monocytes # (Auto) 0.2 x10^3/uL (0.0-1.1) Eosinophils # (Auto) 0.0 x10^3/uL (0.0-0.7) Basophils # (Auto) 0.0 x10^3/uL (0.0-0.2) Prothrombin Time 16.2 SEC (11.7-14.0) Prothromb Time International Ratio 1.3 (0.8-1.1) Activated Partial Thromboplast Time 29 SEC (24-38) D-Dimer (Lilliana) > 20.00 ug/mlFEU Sodium Level 151 mmol/L (136-145) Potassium Level 3.0 mmol/L (3.5-5.1) Chloride Level 109 mmol/L (98-107) Carbon Dioxide Level 18 mmol/L (21-32) Anion Gap 24 (6-14) Blood Urea Nitrogen 60 mg/dL (7-20) Creatinine 2.2 mg/dL (0.6-1.0) Estimated GFR (Cockcroft-Gault) 21.0 BUN/Creatinine Ratio 27 (6-20) Glucose Level 116 mg/dL (70-99) Lactic Acid Level 8.8 mmol/L (0.4-2.0) Calcium Level 9.6 mg/dL (8.5-10.1) Total Bilirubin 1.7 mg/dL (0.2-1.0) Aspartate Amino Transf (AST/SGOT) 26 U/L (15-37) Alanine Aminotransferase (ALT/SGPT) 15 U/L (14-59) Alkaline Phosphatase 153 U/L (46-116) Troponin I High Sensitivity 2446 ng/L (4-50) IX-Zym-A-Type Natriuretic Peptide 4181 pg/mL (0-449) Total Protein 6.2 g/dL (6.4-8.2) Albumin 2.9 g/dL (3.4-5.0) Albumin/Globulin Ratio 0.9 (1.0-1.7) Lipase 44 U/L (73-393) Thyroid Stimulating Hormone (TSH) 1.585 uIU/mL (0.358-3.74) O2 Saturation 99 % (92-99) Arterial Blood pH 7.60 (7.35-7.45) Arterial Blood pCO2 at Patient Temp 18 mmHg (35-46) Arterial Blood pO2 at Patient Temp 199 mmHg (65-108) Arterial Blood HCO3 17 mmol/L (21-28) Arterial Blood Base Excess -2 mmol/L (-3-3) FiO2 100% 15lnrb Urine Collection Type Unknown Urine Color (Auto) Light orange Urine Turbidity Hazy Urine pH (Auto) 6.0 (<5.0-8.0) Urine Specific [place] 1.013 (1.000-1.030) Urine Protein (Auto) Negative mg/dL (Negative) Urine Glucose (Auto)(UA) Negative mg/dL (Negative) Urine Ketones (Auto) 20 mg/dL (Negative) Urine Blood (Auto) Large (Negative) Urine Nitrite Negative (Negative) Urine Bilirubin (Auto) Negative (Negative) Urine Urobilinogen (Auto) 2 mg/dL (Normal) Urine Leukocyte Esterase (Auto) Negative (Negative) Urine RBC 11-20 /HPF (0-2) Urine WBC 11-20 /HPF (0-4) Urine Squamous Epithelial Cells Few /LPF Urine Amorphous Sediment Present /HPF Urine Bacteria Moderate /HPF (0-FEW) Laboratory Tests Test 02/06/22 10:30 02/06/22 10:33 02/06/22 11:05 White Blood Count 16.0 x10^3/uL (4.0-11.0) Red Blood Count 4.05 x10^6/uL (3.50-5.40) Hemoglobin 12.7 g/dL (12.0-15.5) Hematocrit 38.6 % (36.0-47.0) Mean Corpuscular Volume 95 fL (79-100) Mean Corpuscular Hemoglobin 31 pg (25-35) Mean Corpuscular Hemoglobin Concent 33 g/dL (31-37) Red Cell Distribution Width 13.9 % (11.5-14.5) Platelet Count 184 x10^3/uL (140-400) Neutrophils (%) (Auto) 97 % (31-73) Lymphocytes (%) (Auto) 2 % (24-48) Monocytes (%) (Auto) 1 % (0-9) Eosinophils (%) (Auto) 0 % (0-3) Basophils (%) (Auto) 0 % (0-3) Neutrophils # (Auto) 15.5 x10^3/uL (1.8-7.7) Lymphocytes # (Auto) 0.3 x10^3/uL (1.0-4.8) Monocytes # (Auto) 0.2 x10^3/uL (0.0-1.1) Eosinophils # (Auto) 0.0 x10^3/uL (0.0-0.7) Basophils # (Auto) 0.0 x10^3/uL (0.0-0.2) Prothrombin Time 16.2 SEC (11.7-14.0) Prothromb Time International Ratio 1.3 (0.8-1.1) Activated Partial Thromboplast Time 29 SEC (24-38) D-Dimer ([place]ill[place]) > 20.00 ug/mlFEU Sodium Level 151 mmol/L (136-145) Potassium Level 3.0 mmol/L (3.5-5.1) Chloride Level 109 mmol/L (98-107) Carbon Dioxide Level 18 mmol/L (21-32) Anion Gap 24 (6-14) Blood Urea Nitrogen 60 mg/dL (7-20) Creatinine 2.2 mg/dL (0.6-1.0) Estimated GFR (Cockcroft-Gault) 21.0 BUN/Creatinine Ratio 27 (6-20) Glucose Level 116 mg/dL (70-99) Lactic Acid Level 8.8 mmol/L (0.4-2.0) Calcium Level 9.6 mg/dL (8.5-10.1) Total Bilirubin 1.7 mg/dL (0.2-1.0) Aspartate Amino Transf (AST/SGOT) 26 U/L (15-37) Alanine Aminotransferase (ALT/SGPT) 15 U/L (14-59) Alkaline Phosphatase 153 U/L (46-116) Troponin I High Sensitivity 2446 ng/L (4-50) FL-Xwi-I-Type Natriuretic Peptide 4181 pg/mL (0-449) Total Protein 6.2 g/dL (6.4-8.2) Albumin 2.9 g/dL (3.4-5.0) Albumin/Globulin Ratio 0.9 (1.0-1.7) Lipase 44 U/L (73-393) Thyroid Stimulating Hormone (TSH) 1.585 uIU/mL (0.358-3.74) O2 Saturation 99 % (92-99) Arterial Blood pH 7.60 (7.35-7.45) Arterial Blood pCO2 at Patient Temp 18 mmHg (35-46) Arterial Blood pO2 at Patient Temp 199 mmHg (65-108) Arterial Blood HCO3 17 mmol/L (21-28) Arterial Blood Base Excess -2 mmol/L (-3-3) FiO2 100% 15lnrb Urine Collection Type Unknown Urine Color (Auto) Light orange Urine Turbidity Hazy Urine pH (Auto) 6.0 (<5.0-8.0) Urine Specific [place] 1.013 (1.000-1.030) Urine Protein (Auto) Negative mg/dL (Negative) Urine Glucose (Auto)(UA) Negative mg/dL (Negative) Urine Ketones (Auto) 20 mg/dL (Negative) Urine Blood (Auto) Large (Negative) Urine Nitrite Negative (Negative) Urine Bilirubin (Auto) Negative (Negative) Urine Urobilinogen (Auto) 2 mg/dL (Normal) Urine Leukocyte Esterase (Auto) Negative (Negative) Urine RBC 11-20 /HPF (0-2) Urine WBC 11-20 /HPF (0-4) Urine Squamous Epithelial Cells Few /LPF Urine Amorphous Sediment Present /HPF Urine Bacteria Moderate /HPF (0-FEW) Images Images CT head without contrast 02/06/2022 10:31 AM INDICATION: Altered mental status COMPARISON: MRI brain 07/22/2016 TECHNIQUE: Multiple axial CT images of the head were obtained from skull base through the vertex without intravenous contrast. FINDINGS: Head: Ventricles, sulci and basal cisterns are prominent compatible with mild general cerebral volume loss. Low-attenuation in the periventricular white matter is suggestive of chronic small vessel ischemic changes. There is no hydrocephalus. Rider-white matter differentiation is normal. There is no acute intracranial hemorrhage. There is no mass, mass effect or midline shift. Mild cerebellar atrophy. Atherosclerotic calcifications of the posterior and anterior circulation. Visualized portions of the orbits are normal. There is opacification of posterior left ethmoid air cell. Mastoid air cells are well aerated. Scalp and calvaria are normal. IMPRESSION: No acute intracranial hemorrhage. Mild cerebellar and generalized cerebral volume loss. Low-attenuation in the periventricular white matter is suggestive of chronic small vessel ischemic changes. Assessment/Plan Assessment/Plan Impression: Metabolic encephalopathy in dementia Numerous metabolic issues including hypernatremia, hypokalemia, renal failure, hyperglycemia, lactic acidemia, hyperbilirubinemia, elevated troponin and brain natruretic peptide, hypoxia, leukocytosis, pyuria. Nystagmoid eye movements could indeed represent seizures, but obviously with overwhelming metabolic issues, even with aggressive treatment of these, outlook would be unchanged. Recommendations: I discussed with the patient's daughter. Again, she says she has not seen the patient in 2 years. She is not interested in seeing her now. She understands that her mother is dying. We agree that there is no need for aggressive neur ological treatment such as with MRI of the brain, electroencephalogram, lumbar puncture, and use of anticonvulsants. Comfort care. Neurology will see only as needed over the weekend. Thank you for letting me help with the patient's care. SOHAN MARTÍNEZ MD Feb 06, 2022 12:27
--- NOTE | 2022-02-06 12:28 | PDOC2 ---
CARDIAC CONSULT DATE OF CONSULT Date of Consult DATE: 02/06/22 TIME: 12:20 REASON FOR CONSULT Reason for Consult: Elevated troponin REFERRING PHYSICIAN Referring Physician: Dr. Ambrosio SOURCE Source: Chart review HISTORY OF PRESENT ILLNESS HISTORY OF PRESENT ILLNESS This is an 89 yo female who presented from nursing facility secondary to altered mental status, hypoxia, tachycardia, and hypotension. Patient reportedly noted to be altered upon awaking this morning. Is presently unresponsive. On 15L NRB. Presently sinus tach with HR near 107. ED staff has had difficulty obtaining blood pressure. JENNI Claire was contacted by ED provider. She did not want aggressive measures including pressor support and verified that patient is a DNR. I contacted Claire. Reports she has not been able to see mother in over 2 years due to facility COVID restrictions and that he mother no longer was able to recognized her. Discussed multi-system failure and need GIB. She again expressed that she does not want aggressive measures including pressor support and would like to proceed with comfort measures. PAST MEDICAL HISTORY CENTRAL NERVOUS SYSTEM: Dementia Renal/: UTI PAST SURGICAL HISTORY Past Surgical History: Other (hip surgery ) FAMILY HISTORY Family History: Family History Unknown SOCIAL HISTORY Smoke: No ALCOHOL: none Drugs: None Lives: [facility] CURRENT MEDICATIONS CURRENT MEDICATIONS Current Medications Medications (Trade) Dose Ordered Sig/Unique Route PRN Reason Start Time Stop Time Status Last Admin Dose Admin Sodium Chloride 1,000 ml @ 1,000 mls/hr 1X ONCE IV 02/06/22 10:30 02/06/22 11:29 DC 02/06/22 10:48 Piperacillin Sod/ Tazobactam Sod 3.375 gm/Sodium Chloride 50 ml @ 100 mls/hr 1X ONCE IV 02/06/22 11:00 02/06/22 11:29 DC 02/06/22 10:53 Aspirin (Aspirin Rectal Supp) 300 mg 1X ONCE SC 02/06/22 11:45 02/06/22 11:46 DC 02/06/22 11:51 Potassium Chloride/Sodium Chloride 1,000 ml @ 250 mls/hr Q4H ONCE IV 02/06/22 11:30 02/06/22 15:29 02/06/22 11:48 Magnesium Sulfate 50 ml @ 25 mls/hr 1X ONCE IV 02/06/22 12:00 02/06/22 13:59 02/06/22 11:49 ALLERGIES ALLERGIES: Coded Allergies: melton (Verified Allergy, Severe, Hives, 02/06/22) ROS Review of System unobtainable PHYSICAL EXAM General: mild distress HEENT: Atraumatic Lungs: Other (diminished ) Heart: Other (ST) Abdomen: Soft Extremities: No edema Skin: No significant lesion Neuro: Other (unresponsive ) MUSCULOSKELETAL: Osteoarthritic changes both hands VITALS/I&O VITALS/I&O: Vital Signs Date Time Temp Pulse Resp B/P (MAP) Pulse Ox O2 Delivery O2 Flow Rate FiO2 02/06/22 11:01 110 48 61/53 (56) 99 NonRebreather Mask 15.0 02/06/22 10:20 98.5 98.5 LABS Lab: Laboratory Tests Test 02/06/22 10:30 02/06/22 10:33 02/06/22 11:05 White Blood Count 16.0 x10^3/uL (4.0-11.0) H Red Blood Count 4.05 x10^6/uL (3.50-5.40) Hemoglobin 12.7 g/dL (12.0-15.5) Hematocrit 38.6 % (36.0-47.0) Mean Corpuscular Volume 95 fL (79-100) Mean Corpuscular Hemoglobin 31 pg (25-35) Mean Corpuscular Hemoglobin Concent 33 g/dL (31-37) Red Cell Distribution Width 13.9 % (11.5-14.5) Platelet Count 184 x10^3/uL (140-400) Neutrophils (%) (Auto) 97 % (31-73) H Lymphocytes (%) (Auto) 2 % (24-48) L Monocytes (%) (Auto) 1 % (0-9) Eosinophils (%) (Auto) 0 % (0-3) Basophils (%) (Auto) 0 % (0-3) Neutrophils # (Auto) 15.5 x10^3/uL (1.8-7.7) H Lymphocytes # (Auto) 0.3 x10^3/uL (1.0-4.8) L Monocytes # (Auto) 0.2 x10^3/uL (0.0-1.1) Eosinophils # (Auto) 0.0 x10^3/uL (0.0-0.7) Basophils # (Auto) 0.0 x10^3/uL (0.0-0.2) Platelet Estimate Pending Prothrombin Time 16.2 SEC (11.7-14.0) H Prothrombin Time INR 1.3 (0.8-1.1) H Activated Partial Thromboplast Time 29 SEC (24-38) D-Dimer (Lilliana) > 20.00 ug/mlFEU Sodium Level 151 mmol/L (136-145) H Potassium Level 3.0 mmol/L (3.5-5.1) L Chloride Level 109 mmol/L (98-107) H Carbon Dioxide Level 18 mmol/L (21-32) L Anion Gap 24 (6-14) H Blood Urea Nitrogen 60 mg/dL (7-20) H Creatinine 2.2 mg/dL (0.6-1.0) H Estimated GFR (Cockcroft-Gault) 21.0 BUN/Creatinine Ratio 27 (6-20) H Glucose Level 116 mg/dL (70-99) H Lactic Acid Level 8.8 mmol/L (0.4-2.0) *H Calcium Level 9.6 mg/dL (8.5-10.1) Total Bilirubin 1.7 mg/dL (0.2-1.0) H Aspartate Amino Transferase (AST) 26 U/L (15-37) Alanine Aminotransferase (ALT) 15 U/L (14-59) Alkaline Phosphatase 153 U/L (46-116) H Troponin I High Sensitivity 2446 ng/L (4-50) H HI-Spi-C-Type Natriuretic Peptide 4181 pg/mL (0-449) H Total Protein 6.2 g/dL (6.4-8.2) L Albumin 2.9 g/dL (3.4-5.0) L Albumin/Globulin Ratio 0.9 (1.0-1.7) L Lipase 44 U/L (73-393) L Thyroid Stimulating Hormone (TSH) 1.585 uIU/mL (0.358-3.74) O2 Saturation 99 % (92-99) Arterial Blood pH 7.60 (7.35-7.45) *H Arterial Blood pCO2 at Patient Temp 18 mmHg (35-46) *L Arterial Blood pO2 at Patient Temp 199 mmHg (65-108) H Arterial Blood HCO3 17 mmol/L (21-28) L Arterial Blood Base Excess -2 mmol/L (-3-3) FiO2 100% 15lnrb Urine Collection Type Unknown Urine Color (Auto) Light orange Urine Turbidity Hazy Urine pH (Auto) 6.0 (<5.0-8.0) Urine Specific [place] 1.013 (1.000-1.030) Urine Protein (Auto) Negative mg/dL (Negative) Urine Glucose (Auto)(UA) Negative mg/dL (Negative) Urine Ketones (Auto) 20 mg/dL (Negative) Urine Blood (Auto) Large (Negative) Urine Nitrite Negative (Negative) Urine Bilirubin (Auto) Negative (Negative) Urine Urobilinogen (Auto) 2 mg/dL (Normal) Urine Leukocyte Esterase (Auto) Negative (Negative) Urine RBC 11-20 /HPF (0-2) Urine WBC 11-20 /HPF (0-4) Urine Squamous Epithelial Cells Few /LPF Urine Amorphous Sediment Present /HPF Urine Bacteria Moderate /HPF (0-FEW) Laboratory Tests 02/06/22 10:30 Laboratory Tests 02/06/22 10:30 ASSESSMENT/PLAN ASSESSMENT/PLAN 1. Acute respiratory failure; on 15L NRB 2. NSTEMI; trop initial 2446. received rectal ASA 3. Acute CHF 4. Leukocytosis, lactic acidosis, sepsis, shock 5. UTI 6. ARPIT; s/p IVFs 7. Hypokalemia, hypernatremia. K and Mg replaced 8. Metabolic encephalopathy with underlying dementia. CT head without acute findings. Recommendations Supportive care Daughter, Claire, does not want aggressive measures including pressor support and would like to proceed with comfort measures. KARI CABRERA APRN Feb 06, 2022 12:28
[2022-02-06 12:33] LABS: % BANDS 4 % (0-9); % LYMPHS 4 % (24-48); % MONOS 2 % (0-10); % SEGS 90 % (35-66); PLT ESTIMATE ADEQUATE (ADEQUATE)
[2022-02-06 13:08] VITALS: BP 75/48
[2022-02-06] MEDS ORDERED: MORPHINE SULFATE 4 MG/ML INJ. IV PRN (14:00)
--- NOTE | 2022-02-06 14:08 | NUR ---
SS following for discharge planning. SS reviewed pt chart and discussed with pt RN. Request received for hospice services. SS phoned and faxed referral to [facility], ; fax [phone]. Pt's RN notified.
[2022-02-06 15:00] VITALS: BP 87/91
[2022-02-06] MEDS ORDERED: IV NORMAL SALINE 1000ML BAG 1,000 ML IV SCH (17:15)
--- NOTE | 2022-02-06 17:22 | PDOC ---
Provider Note Date of Service: DATE: 02/06/22 TIME: 17:21 Provider Note H&P dictated. #[id number] Justifications for Admission Other Justification DONNA HERNANDEZ MD Feb 06, 2022 17:22
[2022-02-06] MEDS: MORPHINE SULFATE 2 MG/ML INJ. IVP PRN (17:27)
--- NOTE | 2022-02-06 18:11 | HP ---
DATE OF SERVICE: 02/06/2022 ADMIT DATE: 02/06/2022 ADMITTING PHYSICIAN: Desmond Garcia MD HISTORY OF PRESENT ILLNESS: This is an 89-year-old female with dementia who is a [facility] resident, was sent to the emergency room because of change in mental status, hypotension, tachycardia and hypoxia. She was noted to have no measurable blood pressure initially and had very weak central pulses. The emergency room physician spoke to the daughter and she wanted her to be DNR. The patient was noted to have WBC count of 16, hemoglobin of 12.7, platelet count 184,000. Lactic acid level was initially 8.8 and then subsequently 2.6. Troponin level was initially 2446 and then increased to 5090. BNP 4181. Sodium 151, potassium 3, CO2 of 18, BUN 60, creatinine 2.2, bilirubin 1.7, AST 26, ALT 15, alkaline phosphatase 153, albumin 2.9. INR is 1.3. D-dimer more than 20. Urinalysis shows large blood, 11-20 rbc's and wbc's, moderate bacteria, nitrite negative. Influenza type A, B antigen and SARS-CoV-2 antigen were negative. Chest x-ray showed poor inspiration and linear scarring or atelectasis. CT scan of head showed no acute intracranial hemorrhage. She had mild cerebellar generalized cerebral volume loss, low attenuation in the periventricular white matter is suggestive of chronic small vessel ischemic changes. Because of the sepsis, UTI, acute myocardial infarction, lactic acidosis, acute kidney injury and multiple issues. The patient was admitted for further evaluation and management. SYSTEMS REVIEW: The patient is not responsive and unable to do systems review. PAST MEDICAL HISTORY: The patient was last admitted here in 04/2017 because of UTI. She has a history of dementia and recurrent UTI. PAST SURGICAL HISTORY: Hip surgery. ALLERGIES: ALLERGIC TO GOMEZ. MEDICATIONS: Nortriptyline. SOCIAL HISTORY: No history of smoking, alcoholism, or drug abuse. She [facility] in a penit[facility]. FAMILY HISTORY: Not available. PHYSICAL EXAMINATION: GENERAL: The patient is an elderly female who is not responsive. She is on 100% nonrebreather mask. VITAL SIGNS: Temperature 98.5, pulse 134 per minute, respirations 52 per minute, blood pressure 92/50, currently blood pressure is 75/48 and 85/30. SKIN: Warm and dry. No cyanosis. NECK: JVP normal. No thyromegaly. LUNGS: Decreased breath sounds bilaterally. CARDIOVASCULAR: S1, S2 regular, tachycardia present. ABDOMEN: Soft, nontender. Bowel sounds present. EXTREMITIES: No edema. CENTRAL NERVOUS SYSTEM: The patient is very cachectic and chronically ill. She is not responsive, has severe weakness. Unable to do full exam as patient is not responsive and unable to cooperate. GCS 3. LABORATORY FINDINGS: As noted earlier. IMPRESSION: 1. Sepsis. 2. Acute myocardial infarction. 3. Lactic acidosis. 4. Urinary tract infection. 5. Acute kidney injury. 6. Dementia. 7. Severe malnutrition. 8. Hypernatremia. 9. Hypokalemia. 10. Electrolyte imbalance. 11. Acute metabolic encephalopathy. 12. Hyperglycemia. 13. Hyperbilirubinemia. PLAN: The patient was given IV fluids and IV Zosyn in the emergency room. Blood cultures and urine culture were ordered. I spoke to patient's daughter, Claire extensively about the patient's condition, options, treatment and prognosis. She is aware of the patient's condition, but has not been able to visit her at the penitentiary for last two years because of the COVID restrictions. She would like her to remain DNR and she wants to initiate comfort care measures and not to proceed with any other measures. I will give her IV morphine and Ativan as needed. Discontinue other medications including IV Zosyn. We will not obtain any more labs or cultures. We will keep her comfortable. Prognosis of this patient is extremely poor. She was seen by the commissary representative and neurologist and they have also recommended comfort care. For details, please refer to the orders. SHREE DR: Nik TID: [id number] CC: LUIS LIVINGSTON MD
[2022-02-06 19:00] VITALS: BP 88/48
[2022-02-07] MEDS: MORPHINE SULFATE 2 MG/ML INJ. IVP PRN ×2 (02:35→11:01)
--- NOTE | 2022-02-07 06:06 | EKG ---
[facility] [address] [place] [address] Test Date: 2022-02-06 Test Time: 10:22:26 Pat Name: SAIRA FRANCO Department: Room: [facility] Gender: F Cell Tester: : 1930 Requested By: DREA TRAVIS Order Number: [id number] Reading MD: Kev Velasco Measurements Intervals [place] Rate: 134 P: -80 IL: 96 QRS: 21 QRSD: 70 T: 56 QT: 308 QTc: 467 Interpretive Statements SINUS TACHYCARDIA Electronically Signed On 02-13-2022 14:16:59 CDT by Kev Velasco
[2022-02-07 07:00] VITALS: BP 88/80
--- NOTE | 2022-02-07 07:20 | PDOC ---
PROGRESS NOTES Date of Service: DATE: 02/07/22 TIME: 07:20 Subjective Subjective Patient unresponsive Objective Objective Vital Signs Date Time Temp Pulse Resp B/P (MAP) Pulse Ox O2 Delivery O2 Flow Rate FiO2 02/07/22 02:55 28 NonRebreather Mask 15.0 02/06/22 19:00 98.3 104 88/48 (61) 97 98.3 Intake and Output 02/07/22 06:59 Intake Total 2058 ml Output Total 100 ml Balance 1958 ml Intake Oral 0 ml IV Total 1100 ml Blood Product IV Normal Saline Flush 958 ml Output Urine Total 100 ml Physical Exam Abdomen: Soft Heart: Other (ST) Extremities: No edema General: mild distress HEENT: Atraumatic Lungs: Other (diminished ) MUSCULOSKELETAL: Osteoarthritic changes both hands Neuro: Other (unresponsive ) Skin: No significant lesion Assessment Assessment 1. Acute respiratory failure 2. NSTEMI; trop initial 2446. received rectal ASA 3. Acute CHF 4. Leukocytosis, lactic acidosis, sepsis, shock 5. UTI 6. ARPIT; s/p IVFs 7. Hypokalemia, hypernatremia. K and Mg replaced 8. Metabolic encephalopathy with underlying dementia. CT head without acute findings. Recommendations Patient presently palliative care. We will sign off. Plan Plan of Care Problems Medical Problems: (1) Acute encephalopathy Status: Acute (2) Elevated troponin Status: Acute (3) Hypernatremia Status: Acute (4) Hypokalemia Status: Acute (5) Lactic acidosis Status: Acute (6) Leukocytosis Status: Acute (7) Renal insufficiency Status: Acute Comment Review of Relevant I have reviewed the following items leticia (where applicable) has been applied. Labs Laboratory Tests Test 02/06/22 10:30 02/06/22 10:33 02/06/22 11:05 02/06/22 11:54 White Blood Count 16.0 x10^3/uL (4.0-11.0) Red Blood Count 4.05 x10^6/uL (3.50-5.40) Hemoglobin 12.7 g/dL (12.0-15.5) Hematocrit 38.6 % (36.0-47.0) Mean Corpuscular Volume 95 fL (79-100) Mean Corpuscular Hemoglobin 31 pg (25-35) Mean Corpuscular Hemoglobin Concent 33 g/dL (31-37) Red Cell Distribution Width 13.9 % (11.5-14.5) Platelet Count 184 x10^3/uL (140-400) Neutrophils (%) (Auto) 97 % (31-73) Lymphocytes (%) (Auto) 2 % (24-48) Monocytes (%) (Auto) 1 % (0-9) Eosinophils (%) (Auto) 0 % (0-3) Basophils (%) (Auto) 0 % (0-3) Neutrophils # (Auto) 15.5 x10^3/uL (1.8-7.7) Lymphocytes # (Auto) 0.3 x10^3/uL (1.0-4.8) Monocytes # (Auto) 0.2 x10^3/uL (0.0-1.1) Eosinophils # (Auto) 0.0 x10^3/uL (0.0-0.7) Basophils # (Auto) 0.0 x10^3/uL (0.0-0.2) Segmented Neutrophils % 90 % (35-66) Band Neutrophils % 4 % (0-9) Lymphocytes % 4 % (24-48) Monocytes % 2 % (0-10) Platelet Estimate Adequate (ADEQUATE) Prothrombin Time 16.2 SEC (11.7-14.0) Prothromb Time International Ratio 1.3 (0.8-1.1) Activated Partial Thromboplast Time 29 SEC (24-38) D-Dimer (Lilliana) > 20.00 ug/mlFEU Sodium Level 151 mmol/L (136-145) Potassium Level 3.0 mmol/L (3.5-5.1) Chloride Level 109 mmol/L (98-107) Carbon Dioxide Level 18 mmol/L (21-32) Anion Gap 24 (6-14) Blood Urea Nitrogen 60 mg/dL (7-20) Creatinine 2.2 mg/dL (0.6-1.0) Estimated GFR (Cockcroft-Gault) 21.0 BUN/Creatinine Ratio 27 (6-20) Glucose Level 116 mg/dL (70-99) Lactic Acid Level 8.8 mmol/L (0.4-2.0) Calcium Level 9.6 mg/dL (8.5-10.1) Magnesium Level 2.4 mg/dL (1.8-2.4) Total Bilirubin 1.7 mg/dL (0.2-1.0) Aspartate Amino Transf (AST/SGOT) 26 U/L (15-37) Alanine Aminotransferase (ALT/SGPT) 15 U/L (14-59) Alkaline Phosphatase 153 U/L (46-116) Troponin I High Sensitivity 2446 ng/L (4-50) PK-Hfz-Y-Type Natriuretic Peptide 4181 pg/mL (0-449) Total Protein 6.2 g/dL (6.4-8.2) Albumin 2.9 g/dL (3.4-5.0) Albumin/Globulin Ratio 0.9 (1.0-1.7) Lipase 44 U/L (73-393) Thyroid Stimulating Hormone (TSH) 1.585 uIU/mL (0.358-3.74) O2 Saturation 99 % (92-99) Arterial Blood pH 7.60 (7.35-7.45) Arterial Blood pCO2 at Patient Temp 18 mmHg (35-46) Arterial Blood pO2 at Patient Temp 199 mmHg (65-108) Arterial Blood HCO3 17 mmol/L (21-28) Arterial Blood Base Excess -2 mmol/L (-3-3) FiO2 100% 15lnrb Urine Collection Type Unknown Urine Color (Auto) Light orange Urine Turbidity Hazy Urine pH (Auto) 6.0 (<5.0-8.0) Urine Specific [place] 1.013 (1.000-1.030) Urine Protein (Auto) Negative mg/dL (Negative) Urine Glucose (Auto)(UA) Negative mg/dL (Negative) Urine Ketones (Auto) 20 mg/dL (Negative) Urine Blood (Auto) Large (Negative) Urine Nitrite Negative (Negative) Urine Bilirubin (Auto) Negative (Negative) Urine Urobilinogen (Auto) 2 mg/dL (Normal) Urine Leukocyte Esterase (Auto) Negative (Negative) Urine RBC 11-20 /HPF (0-2) Urine WBC 11-20 /HPF (0-4) Urine Squamous Epithelial Cells Few /LPF Urine Amorphous Sediment Present /HPF Urine Bacteria Moderate /HPF (0-FEW) Influenza Type A Antigen Negative (NEGATIVE) Influenza Type B Antigen Negative (NEGATIVE) SARS-CoV-2 Antigen (Rapid) Negative (NEGATIVE) Test 02/06/22 14:18 Lactic Acid Level 2.6 mmol/L (0.4-2.0) Troponin I High Sensitivity 5090 ng/L (4-50) Medications Current Medications Aspirin (Aspirin Rectal Supp) 300 mg 1X ONCE DE Last administered on 02/06/22at 11:51; Start 02/06/22 at 11:45; Stop 02/06/22 at 11:46; Status DC Lorazepam (Ativan Inj) 1 mg PRN Q4HRS PRN IVP ANXIETY / AGITATION; Start 02/06/22 at 14:00 Magnesium Sulfate 50 ml @ 25 mls/hr 1X ONCE IV Last administered on 02/06/22at 11:49; Start 02/06/22 at 12:00; Stop 02/06/22 at 13:59; Status DC Morphine Sulfate (Morphine Sulfate) 2 mg PRN Q2HR PRN IVP MODERATE PAIN Last administered on 02/07/22at 02:35; Start 02/06/22 at 14:00 Morphine Sulfate (Morphine Sulfate) 4 mg PRN Q2HR PRN IV SEVERE PAIN; Start 02/06/22 at 14:00 Ondansetron HCl (Zofran) 4 mg PRN Q8HRS PRN IVP NAUSEA/VOMITING; Start 02/06/22 at 11:45; Stop 02/07/22 at 11:44 Piperacillin Sod/ Tazobactam Sod 3.375 gm/Sodium Chloride 50 ml @ 100 mls/hr 1X ONCE IV Last administered on 02/06/22at 10:53; Start 02/06/22 at 11:00; Stop 02/06/22 at 11:29; Status DC Potassium Chloride/Sodium Chloride 1,000 ml @ 250 mls/hr Q4H ONCE IV Last administered on 02/06/22at 11:48; Start 02/06/22 at 11:30; Stop 02/06/22 at 15:29; Status DC Sodium Chloride 1,000 ml @ 30 mls/hr Q24H IV Last administered on 02/06/22at 17:29; Start 02/06/22 at 17:15 Sodium Chloride 1,000 ml @ 1,000 mls/hr 1X ONCE IV Last administered on 02/06/22at 10:48; Start 02/06/22 at 10:30; Stop 02/06/22 at 11:29; Status DC Vitals/I & O Vital Sign - Last 24 Hours 4/802/06/22 02/06/22 02/06/22 10:20 11:01 11:30 12:00 Temp 98.5 98.5 Pulse 134 110 106 110 Resp 52 48 48 50 B/P (MAP) 92/50 (64) 61/53 (56) Pulse Ox 99 99 99 100 O2 Delivery NonRebreather Mask NonRebreather Mask NonRebreather Mask O2 Flow Rate 15.0 15.0 15.0 02/06/22 02/06/22 02/06/22 02/06/22 12:30 13:08 13:55 15:00 Temp 98.5 98.3 98.5 98.3 Pulse 100 107 134 Resp 52 20 22 B/P (MAP) 75/48 (57) 87/91 (90) Pulse Ox 99 96 92 O2 Delivery NonRebreather Mask NonRebreather Mask Non-Rebreather NonRebreather Mask O2 Flow Rate 15.0 15.0 15.0 15.0 02/06/22 02/06/22 02/06/22 02/06/22 17:27 18:00 19:00 19:15 Temp 98.3 98.3 Pulse 104 Resp 22 B/P (MAP) 88/48 (61) Pulse Ox 92 97 O2 Delivery NonRebreather Mask Non-Rebreather O2 Flow Rate 15.0 15.0 15.0 02/07/22 02/07/22 02:35 02:55 Resp 30 28 O2 Delivery NonRebreather Mask NonRebreather Mask O2 Flow Rate 15.0 15.0 Intake and Output 02/06/22 02/06/22 02/07/22 14:59 22:59 06:59 Intake Total 1100 ml 958 ml Output Total 100 ml Balance 1100 ml 958 ml -100 ml SHALA GREGG MD Feb 07, 2022 07:20
--- NOTE | 2022-02-07 10:24 | PDOC ---
IM PROGRESS NOTES- Subjective Subjective Patient is not responsive. Unable to do systems review. Objective Vitals/I&O Vital Signs Date Time Temp Pulse Resp B/P (MAP) Pulse Ox O2 Delivery O2 Flow Rate FiO2 02/07/22 07:00 98.8 114 18 88/80 (83) 98 NonRebreather Mask 15.0 98.8 I & O 02/06/22 02/06/22 02/07/22 15:00 23:00 07:00 Intake Total 1100 ml 958 ml Output Total 100 ml Balance 1100 ml 958 ml -100 ml Physical Exam Physical Exam The patient is an elderly female who is not responsive. She is on 100% non rebreather mask. LUNGS: Decreased breath sounds bilaterally. CARDIOVASCULAR: S1, S2 regular, tachycardia present. ABDOMEN: Soft, nontender. Bowel sounds present. EXTREMITIES: No edema. CENTRAL NERVOUS SYSTEM: The patient is very cachectic and chronically ill. She is not responsive, has severe weakness. Unable to do full exam as patient is not responsive and unable to cooperate. GCS 3. Labs Laboratory Tests Test 02/06/22 10:30 02/06/22 10:33 02/06/22 11:05 02/06/22 11:54 White Blood Count 16.0 x10^3/uL (4.0-11.0) H Red Blood Count 4.05 x10^6/uL (3.50-5.40) Hemoglobin 12.7 g/dL (12.0-15.5) Hematocrit 38.6 % (36.0-47.0) Mean Corpuscular Volume 95 fL (79-100) Mean Corpuscular Hemoglobin 31 pg (25-35) Mean Corpuscular Hemoglobin Concent 33 g/dL (31-37) Red Cell Distribution Width 13.9 % (11.5-14.5) Platelet Count 184 x10^3/uL (140-400) Neutrophils (%) (Auto) 97 % (31-73) H Lymphocytes (%) (Auto) 2 % (24-48) L Monocytes (%) (Auto) 1 % (0-9) Eosinophils (%) (Auto) 0 % (0-3) Basophils (%) (Auto) 0 % (0-3) Neutrophils # (Auto) 15.5 x10^3/uL (1.8-7.7) H Lymphocytes # (Auto) 0.3 x10^3/uL (1.0-4.8) L Monocytes # (Auto) 0.2 x10^3/uL (0.0-1.1) Eosinophils # (Auto) 0.0 x10^3/uL (0.0-0.7) Basophils # (Auto) 0.0 x10^3/uL (0.0-0.2) Segmented Neutrophils % 90 % (35-66) H Band Neutrophils % 4 % (0-9) Lymphocytes % 4 % (24-48) L Monocytes % 2 % (0-10) Platelet Estimate Adequate (ADEQUATE) Prothrombin Time 16.2 SEC (11.7-14.0) H Prothrombin Time INR 1.3 (0.8-1.1) H Activated Partial Thromboplast Time 29 SEC (24-38) D-Dimer (Lilliana) > 20.00 ug/mlFEU Sodium Level 151 mmol/L (136-145) H Potassium Level 3.0 mmol/L (3.5-5.1) L Chloride Level 109 mmol/L (98-107) H Carbon Dioxide Level 18 mmol/L (21-32) L Anion Gap 24 (6-14) H Blood Urea Nitrogen 60 mg/dL (7-20) H Creatinine 2.2 mg/dL (0.6-1.0) H Estimated GFR (Cockcroft-Gault) 21.0 BUN/Creatinine Ratio 27 (6-20) H Glucose Level 116 mg/dL (70-99) H Lactic Acid Level 8.8 mmol/L (0.4-2.0) *H Calcium Level 9.6 mg/dL (8.5-10.1) Magnesium Level 2.4 mg/dL (1.8-2.4) Total Bilirubin 1.7 mg/dL (0.2-1.0) H Aspartate Amino Transferase (AST) 26 U/L (15-37) Alanine Aminotransferase (ALT) 15 U/L (14-59) Alkaline Phosphatase 153 U/L (46-116) H Troponin I High Sensitivity 2446 ng/L (4-50) H IS-Aso-Z-Type Natriuretic Peptide 4181 pg/mL (0-449) H Total Protein 6.2 g/dL (6.4-8.2) L Albumin 2.9 g/dL (3.4-5.0) L Albumin/Globulin Ratio 0.9 (1.0-1.7) L Lipase 44 U/L (73-393) L Thyroid Stimulating Hormone (TSH) 1.585 uIU/mL (0.358-3.74) O2 Saturation 99 % (92-99) Arterial Blood pH 7.60 (7.35-7.45) *H Arterial Blood pCO2 at Patient Temp 18 mmHg (35-46) *L Arterial Blood pO2 at Patient Temp 199 mmHg (65-108) H Arterial Blood HCO3 17 mmol/L (21-28) L Arterial Blood Base Excess -2 mmol/L (-3-3) FiO2 100% 15lnrb Urine Collection Type Unknown Urine Color (Auto) Light orange Urine Turbidity Hazy Urine pH (Auto) 6.0 (<5.0-8.0) Urine Specific [place] 1.013 (1.000-1.030) Urine Protein (Auto) Negative mg/dL (Negative) Urine Glucose (Auto)(UA) Negative mg/dL (Negative) Urine Ketones (Auto) 20 mg/dL (Negative) Urine Blood (Auto) Large (Negative) Urine Nitrite Negative (Negative) Urine Bilirubin (Auto) Negative (Negative) Urine Urobilinogen (Auto) 2 mg/dL (Normal) Urine Leukocyte Esterase (Auto) Negative (Negative) Urine RBC 11-20 /HPF (0-2) Urine WBC 11-20 /HPF (0-4) Urine Squamous Epithelial Cells Few /LPF Urine Amorphous Sediment Present /HPF Urine Bacteria Moderate /HPF (0-FEW) Influenza Type A Antigen Negative (NEGATIVE) Influenza Type B Antigen Negative (NEGATIVE) SARS-CoV-2 Antigen (Rapid) Negative (NEGATIVE) Test 02/06/22 14:18 Lactic Acid Level 2.6 mmol/L (0.4-2.0) H Troponin I High Sensitivity 5090 ng/L (4-50) H Laboratory Tests 02/06/22 10:30 Laboratory Tests 02/06/22 10:30 Meds Current Medications Medications (Trade) Dose Ordered Sig/Unique Route PRN Reason Start Time Stop Time Status Last Admin Dose Admin Sodium Chloride 1,000 ml @ 1,000 mls/hr 1X ONCE IV 02/06/22 10:30 02/06/22 11:29 DC 02/06/22 10:48 Piperacillin Sod/ Tazobactam Sod 3.375 gm/Sodium Chloride 50 ml @ 100 mls/hr 1X ONCE IV 02/06/22 11:00 02/06/22 11:29 DC 02/06/22 10:53 Aspirin (Aspirin Rectal Supp) 300 mg 1X ONCE NC 02/06/22 11:45 02/06/22 11:46 DC 02/06/22 11:51 Potassium Chloride/Sodium Chloride 1,000 ml @ 250 mls/hr Q4H ONCE IV 02/06/22 11:30 02/06/22 15:29 DC 02/06/22 11:48 Magnesium Sulfate 50 ml @ 25 mls/hr 1X ONCE IV 02/06/22 12:00 02/06/22 13:59 DC 02/06/22 11:49 Morphine Sulfate (Morphine Sulfate) 2 mg PRN Q2HR PRN IVP MODERATE PAIN 02/06/22 14:00 02/07/22 02:35 Sodium Chloride 1,000 ml @ 30 mls/hr Q24H IV 02/06/22 17:15 02/06/22 17:29 Assessment Assessment 1. Sepsis. 2. Acute myocardial infarction. 3. Lactic acidosis. 4. Urinary tract infection. 5. Acute kidney injury. 6. Dementia. 7. Severe malnutrition. 8. Hypernatremia. 9. Hypokalemia. 10. Electrolyte imbalance. 11. Acute metabolic encephalopathy. 12. Hyperglycemia. 13. Hyperbilirubinemia. 14. Acute hypoxic respiratory failure PLAN: The patient was given IV fluids and IV Zosyn in the emergency room. Blood cultures and urine culture were ordered. I spoke to patient's daughter, Claire extensively about the patient's condition, options, treatment and prognosis. She is aware of the patient's condition, but [facility] because of the COVID restrictions. She would like her to remain DNR and she wants to initiate comfort care measures and not to proceed with any other measures. I will give her IV morphine and Ativan as needed. Discontinue other medications including IV Zosyn. We will not obtain any more labs or cultures. We will keep her comfortable. Prognosis of this patient is extremely poor. She was seen by the termite treater helper and neurologist and they have also recommended comfort care. For details, please refer to the orders. Start Comfort care. Start IV morphine drip. Plan Plan For more details regarding further plans, please refer to the orders. Justifications for Admission Other Justification DONNA HERNANDEZ MD Feb 07, 2022 10:24
[2022-02-07 11:00] VITALS: BP 93/48
[2022-02-07] MEDS ORDERED: MORPHINE SULFATE 30 ML IV PRN (12:15)
[2022-02-07] MEDS ORDERED: NALOXONE 0.4 MG/ML VIAL. IV PRN (12:15)
[2022-02-07] MEDS ORDERED: IV NORMAL SALINE 1000ML BAG 1,000 ML IV SCH (12:15)
--- NOTE | 2022-02-07 13:30 | NUR ---
This RN saw patients heart rate was in the 40's and 30's after being in the one teens all day, RN went to go check on patient and patient color had changed and a greyish color, patient was having periods on apnea. Patient was a DNR and on comfort care measures only. RN held patients hand and patient took her last breath at 1253. This RN and Simin Camejo RN assessed patient separately and there was no heart beat, breath sounds, pupil response or gag reflex. Patient was pronounced at 1256. Dr. Garcia [place], Competitive [employer]pper, and daughter Claire were called. Post mortem care was preformed and patient was placed in a body bag and transferred to the [facility].
--- NOTE | 2022-02-08 10:19 | PDOC3 ---
IM DISCHARGE SUMMARY Date of Admission Date of Admission Date of Admission: Feb 06, 2022 at 11:10 Date of Discharge Date of Discharge February 08, 2022 Primary Diagnosis Primary Diagnosis 1. Sepsis. 2. Acute myocardial infarction. 3. Lactic acidosis. 4. Urinary tract infection. 5. Acute kidney injury. 6. Dementia. 7. Severe malnutrition. 8. Hypernatremia. 9. Hypokalemia. 10. Electrolyte imbalance. 11. Acute metabolic encephalopathy. 12. Hyperglycemia. 13. Hyperbilirubinemia. Consults Consults Kev Velsaco MD Brief hospital course Brief hospital course This is an 89-year-old female with dementia who is a senior living resident, was sent to the emergency room because of change in mental status, hypotension, tachycardia and hypoxia. She was noted to have no measurable blood pressure initially and had very weak central pulses. The emergency room physician spoke to the daughter and she wanted her to be DNR. The patient was noted to have WBC count of 16, hemoglobin of 12.7, platelet count 184,000. Lactic acid level was initially 8.8 and then subsequently 2.6. Troponin level was initially 2446 and then increased to 5090. BNP 4181. Sodium 151, potassium 3, CO2 of 18, BUN 60, creatinine 2.2, bilirubin 1.7, AST 26, ALT 15, alkaline phosphatase 153, albumin 2.9. INR is 1.3. D-dimer more than 20. Urinalysis shows large blood, 11-20 rbc's and wbc's, moderate bacteria, nitrite negative. Influenza type A, B antigen and SARS-CoV-2 antigen were negative. Chest x-ray showed poor inspiration and linear scarring or atelectasis. CT scan of head showed no acute intracranial hemorrhage. She had mild cerebellar generalized cerebral volume loss, low attenuation in the periventricular white matter is suggestive of chronic small vessel ischemic changes. Because of the sepsis, UTI, acute myocardial infarction, lactic acidosis, acute kidney injury and multiple issues. The patient was admitted for further evaluation and management. For more details regarding the past history, family history, social history, surgical history and other details, please refer to the H&P. 1. Sepsis. 2. Acute myocardial infarction. 3. Lactic acidosis. 4. Urinary tract infection. 5. Acute kidney injury. 6. Dementia. 7. Severe malnutrition. 8. Hypernatremia. 9. Hypokalemia. 10. Electrolyte imbalance. 11. Acute metabolic encephalopathy. 12. Hyperglycemia. 13. Hyperbilirubinemia. 14. Acute hypoxic respiratory failure PLAN: The patient was given IV fluids and IV Zosyn in the emergency room. Blood cultures and urine culture were ordered. I spoke to patient's daughter, Claire extensively about the patient's condition, options, treatment and prognosis. She is aware of the patient's condition, but has not been able to visit her at the senior living for last two years because of the COVID restrictions. She would like her to remain DNR and she wants to initiate comfort care measures and not to proceed with any other measures. I will give her IV morphine and Ativan as needed. Discontinue other medications including IV Zosyn. We will not obtain any more labs or cultures. We will keep her comfortable. Prognosis of this patient is extremely poor. She was seen by the safety supervisor and neurologist and they have also recommended comfort care. For details, please refer to the orders. Patient was placed on comfort care. Her condition continued to decline and she on February 07, 2022. Medications Medications reviewed and reconciled for discharge. Home Meds Reported Medications Nortriptyline Hcl (NORTRIPTYLINE HCL) 50 Mg Capsule, 50 MG PO DAILY, CAP 07/22/16 Cyanocobalamin (Vitamin B-12) (VITAMIN B-12) 1,000 Mcg Tablet, 1 TAB PO DAILY, #30 TAB 2 Refills 07/22/16 Allergy Allergies Coded Allergies Type Severity Reaction Last Updated Verified melton Allergy Severe Hives 02/06/22 Yes Follow up Patient . Comments Discharge Management - 35 minutes. For other details please refer to discharge instructions Justicifation of Admission Dx: Justifications for Admission: Justification of Admission Dx: Yes Sepsis: Infection DONNA HERNANDEZ MD Feb 08, 2022 10:19
== END 2022-02-07 13:30 | DRG 871 ==
LOC: ER 10:16 → ED HOLD 11:10 → 5 NORTH 13:20
PROVIDERS: ADMIT Internal Medicine; ATTEND Internal Medicine
DX: A41.9 Sepsis, unspecified organism (principal); E43 Unspecified severe protein-calorie malnutrition; G93.41 Metabolic encephalopathy; I21.4 Non-ST elevation (NSTEMI) myocardial infarction; J96.01 Acute respiratory failure with hypoxia; R65.21 Severe sepsis with septic shock; Z68.1 Body mass index [BMI] 19.9 or less, adult; E87.0 Hyperosmolality and hypernatremia; N17.9 Acute kidney failure, unspecified; N39.0 Urinary tract infection, site not specified; R17 Unspecified jaundice; E87.6 Hypokalemia; R73.9 Hyperglycemia, unspecified; Z96.649 Presence of unspecified artificial hip joint; E87.8 Other disorders of electrolyte and fluid balance, not elsewhere classified; F03.90 Unspecified dementia, unspecified severity, without behavioral disturbance, psychotic disturbance, mood disturbance, and anxiety; I50.9 Heart failure, unspecified; Z66 Do not resuscitate; Z87.440 Personal history of urinary (tract) infections; Z88.8 Allergy status to other drugs, medicaments and biological substances; Z20.822 Contact with and (suspected) exposure to COVID-19
CPT/HCPCS: 36415; 36600; 51702; 70450; 71045; 80053; 81001; 82805; 83605; 83690; 83735; 83880; 84443; 84484; 85007; 85025; 85379; 85610; 85730; 87040; 87077; 87086; 87186; 87428; 93005; 96365; 96367; 96368; J2270; J2543; J3475; J3480; J7030; 99291-25; G0378